=== PATIENT | male | born 1955 | race Caucasian/White ===

== ENCOUNTER → 2016-10-29 | Outpatient (CLI) | payer MEDICARE, BC ==
[~2016-10-29] MED LIST: AMLO10TA2 PO; CEPH-583 PO; DIPH25CA84 PO; DOCU-132 PO; DOCU50LI12 RECTALLY; ERLO150T PO; FENT1PAT68 TOP; INSU100V SQ; INSU100V12 SQ; LISI40TA4 PO; MAGN400O4 PO; MAGN400T6 PO; METF10002 PO; METH1TAB40 PO; METH750T3 PO; METO50TA9 PO; MORP20SY BUC; ONDA-56 PO; OXYC15TA50 PO; OXYC1TAB13 PO; POLY17PO6 PO; PROC-14 PO; RANI150T7 PO; SUCR1TAB PO; TAMS0.4C47 PO; ZOLP10TA6 PO
--- NOTE | 2016-10-29 17:55 | DI ---
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 Coronal and sagittal two-dimensional reformats. Automated Exposure Control and Iterative Reconstruction dose reducing techniques were utilized. Findings: The included portions of the lung bases demonstrate some linear atelectasis or scarring. There is a small granuloma in the anterolateral left lung base. There is an indeterminate nodule in the right middle lobe that measures approximate 5.3 mm, unchanged. There is a large infiltrative mass involving the majority of the anterior right lobe of the liver with moderate ascites and probable carcinomatosis of the omentum. There is no clear bowel distention. The spleen is unremarkable in contour. Adrenal glands are noted. The kidneys are unremarkable. The pancreas is not well seen. The abdominal aorta is nonaneurysmal. There is extensive streak artifact from metallic pedicle screws. Pelvis: There is moderate free fluid in the pelvic cul-de-sac. There is no significant diverticulosis or evidence for diverticulitis. A normal appendix is not identified with certainty. The urinary bladder is not distended. No definite skeletal metastasis. Impression: Large infiltrating mass occupying the majority of the right lobe of the liver with extensive peritoneal carcinomatosis and ascites. No evidence for bowel obstruction or perforation. Stable pulmonary nodules in the included portions of the lung bases. .
== END ==
LOC: IMA 15:51
PROVIDERS: ATTEND Internal Medicine Hematology & Oncology
DX: C22.1 Intrahepatic bile duct carcinoma (principal)

== ENCOUNTER 2016-11-01 15:31 | Inpatient (IN) | payer BC, MEDICARE ==
[2016-11-01] VITALS (17 sets, daily range): BP systolic 162–193; BP diastolic 101–110; PULSE 92–119; RESP 25–40; TEMP 97.9; O2SAT 88–100; Ht 185.4 cm; Wt 64.4 kg
[~2016-11-01] VITALS: Ht 185.4 cm; Wt 64.4 kg
[~2016-11-01 15:31] MED LIST changes: -CEPH-583 PO; -DOCU50LI12 RECTALLY; -ERLO150T PO; -FENT1PAT68 TOP; -MAGN400T6 PO; -METH1TAB40 PO; -MORP20SY BUC; -OXYC15TA50 PO; -POLY17PO6 PO; -PROC-14 PO; -SUCR1TAB PO
--- OUTSIDE RECORDS SUMMARY | 2016-11-01 15:36 | XMS REPORT | Continuity of Care Document ---
Author Author [facility] Organization [facility] Address Unknown Phone Unavailable Care Team Providers Care Framing Mill Operator Name Role Phone Primary Care Physician Unavailable Source Comments Some departments are not documenting in the electronic medical record. If you do not see the information that you expected, contact Release of Information in the Health Information Management department at [phone] for further assistance in locating additional records.[facility] Active Allergies and Adverse Reactions Not on File Current Medications Not on file Active Problems Not on file Social History Tobacco Use Types Packs/Day Years Used Date Never Assessed Plan of Care Health Maintenance Due Date Last Done Comments Hepatitis C Screening 1955 Physical (Comprehensive) 1962 Exam Pertussis Vaccine 1966 Tetanus Vaccine 1972 Colorectal Cancer 2005 Screening Shingles Vaccine 2015 Influenza Vaccine 03/08/2017 Results from Last 3 Months Not on file
--- OUTSIDE RECORDS SUMMARY | 2016-11-01 15:38 | XMS REPORT | Continuity of Care Document ---
Author Author [facility] Organization [facility] Address Unknown Phone Unavailable Support Name Relationship Address Phone LISA DEWITT DO Caregiver [address] [place] [address] Unavailable JOHNNA SMITH DO Caregiver [address] [place] [address] Unavailable MARKUS IBRAHIM Next Of Kin [address] [place] [address] Insurance Providers Guarantor Lesly Ibrahim Address [address] [place] [address] Email [email or web address] Policy Number [id number] Subscriber's Name Lesly Ibrahim Relationship 18 Self Group Number [id number] Chief Complaint and Reason for Visit Chief Complaint Dizzy Reason for Visit Dizziness Problems Active Problems Medical Problem Onset Date Status Liver mass Unknown Past Problems Medical Problem Onset Date Abdominal pain, right upper quadrant Unknown Dizziness Unknown Hypertension Unknown Liver mass, right lobe Unknown Medications Current Home Medications Medication Dose Units Route Directions Days Qty Instructions Start Date Amlodipine Besylate 10 Mg Tablet 10 Mg Oral Daily 03/01/16 Diphenhydramine Hcl (Benadryl) 25 Mg Capsule 25-75 Mg Oral Bedtime as needed for Prn Orders 02/18/16 Docusate Sodium (Dulcolax Stool Softener) 100 Mg Capsule 100 Mg Oral Daily 02/13/16 Insulin Detemir (Levemir) 100 Unit/Ml Inj 25-40 Unit Sub-Q Bedtime 02/10/16 Insulin Lispro (Humalog) 100 Unit/Ml Inj 5 Unit Sub-Q Three Times Daily With Meals 02/10/16 Lisinopril 40 Mg Tablet 40 Mg Oral Daily 08/21/16 Magnesium Hydroxide (Milk Of Magnesia) 400 Mg/5 Ml Oral.susp 30 Ml Oral Daily as needed for Constipation 02/18/16 Metformin Hcl 1,000 Mg Tablet 1,000 Mg Oral Twice Daily With Meals 02/10/16 Methocarbamol 750 Mg Tablet 750 Mg Oral Four Times Daily 02/10/16 Metoprolol Succinate (Toprol Xl) 50 Mg Tab.er.24h 50 Mg Oral Daily 02/10/16 Ondansetron Hcl 8 Mg Tablet 8 Mg Oral Three Times A Day as needed for Nausea 08/21/16 Oxycodone Hcl/Acetaminophen (Percocet 10-325 Mg Tablet) 10-325 Tablet 1 Tab Oral Every 6 Hours as needed for Pain 03/02/16 Ranitidine Hcl 150 Mg Tablet 150 Mg Oral Twice A Day 02/10/16 Tamsulosin Hcl 0.4 Mg Cap.er.24h 0.8 Mg Oral Daily 02/10/16 Zolpidem Tartrate 10 Mg Tablet 10 Mg Oral Bedtime as needed for Insomnia 02/10/16 Social History Social History Problem Response Recorded Date/Time Onset Date Status Hx Substance Use No 08/21/2016 1:20pm Not Applicable Not Applicable Hx Alcohol Use N FORMER ALCOHOLIC 08/21/2016 1:20pm Not Applicable Not Applicable Has the pt used tobacco in the last 12 months No 07/16/2016 6:20pm Not Applicable Not Applicable Query Response Start Date Stop Date Smoking Status Unknown if ever smoked Hospital Discharge Instructions No hospital discharge instructions. Plan of Care Discharge Date 08/21/16 3:23pm Disposition 01 DISCHARGED HOME, SELF-CARE Condition at Discharge Stable Instructions/Education Provided Dizziness (ED) Prescriptions See Medication Section Referrals LISA DEWITT DO Address: [address] [address] Additional Instructions/Education I do want you to make sure that you are drinking plenty of fluids at home. Follow up with the cancer center tomorrow as scheduled. If you have any other issues/concerns then return to ER. I do want you to have a cardiology follow up in the near future. We did discuss your EKG with Dr. Haile. You may follow up with him or cardiology of your choice. Care Plan and Goals Physician Care Plan Problem:Dizziness Goal: Follow up with primary care provider Instructions: Take medications and follow care plan as discussed/written Functional Status No functional status results. Allergies, Adverse Reactions, Alerts No known allergies. Immunizations Query Response on File Recorded Date/Time Hx Influenza Vaccination N DOESN'T DO THIS 07/16/16 6:20pm Hx Pneumococcal Vaccination N DOESN'T DO THIS 07/16/16 6:20pm Hx Influenza Vaccination N DOESN'T DO THIS 07/16/16 6:20pm Influenza Vaccine Hx doesn't do this 08/21/16 1:20pm Vital Signs Acute Vital Signs Vital Response Date/Time Temperature (Fahrenheit) 98.0 deg F (96.8 - 99.1) 08/21/2016 3:35pm Temperature (Calculated Celsius) 36.41278 degrees C (36.0 - 37.3) 08/21/2016 3:35pm Pulse Rate (adult) 92 bpm (60 - 100) 08/21/2016 3:35pm Respiratory Rate 18 breaths/min (10 - 20) 08/21/2016 3:35pm O2 Sat by Pulse Oximetry 98 % (90 - 100) 08/21/2016 3:35pm Oxygen Delivery Method Room Air 07/16/2016 6:29pm Blood Pressure 156/78 mm Hg 08/21/2016 3:35pm Blood Pressure Source Automatic Cuff 07/16/2016 6:29pm Height (Feet) 6 feet 08/21/2016 1:13pm Height (Inches) 1.00 inches 08/21/2016 1:13pm Weight (Kilograms) 69.400 kg 08/21/2016 1:13pm Body Mass Index (BMI) 20.0 08/21/2016 1:13pm Results Laboratory Results Test Name Result Units Flags Reference Collection Date/Time Result Date/ Time Comments Monocytes % (Manual) 2.0 % 0-9.0 07/04/2016 12:33pm 07/04/2016 1:04pm Eosinophils % (Manual) 1.0 % 0-4 07/03/2016 10:47am 07/03/2016 11:23am Basophils % (Manual) 1.0 % 0-2 07/03/2016 10:47am 07/03/2016 11:23am Monocytes # (Manual) 0.1 T/MM3 0-0.8 07/04/2016 12:33pm 07/04/2016 1: 04pm Eosinophils # (Manual) 0.0 T/MM3 0-0.5 07/03/2016 10:47am 07/03/2016 11 :23am Basophils # (Manual) 0.0 T/MM3 0-0.2 07/03/2016 10:47am 07/03/2016 11: 23am Anisocytosis 2+ 06/07/2016 10:37am 06/07/2016 11:18am Neutrophils % (Manual) 69.0 % H 33-66 07/06/2016 12:48pm 07/06/2016 1: 37pm Band Neutrophils % 11.0 % H 0-6 07/06/2016 12:48pm 07/06/2016 1:37pm Lymphocytes % (Manual) 20.0 % L 23-45 07/06/2016 12:48pm 07/06/2016 1: 37pm Band Neutrophils # 0.5 T/MM3 07/06/2016 12:48pm 07/06/2016 1:37pm Absolute Neutrophils (Manual) 3.1 T/MM3 1.8-7.7 07/06/2016 12:48pm 1:37pm Lymphocytes # (Manual) 0.9 T/MM3 L 1-4.8 07/06/2016 12:48pm 07/06/2016 1 :37pm Toxic Granulation 1+ 07/06/2016 12:48pm 07/06/2016 1:37pm Red Cell Morphology Comment ABNORMAL 07/06/2016 12:48pm 07/06/2016 1:37pm Poikilocytosis 1+ 07/06/2016 12:48pm 07/06/2016 1:37pm Tear Drop Cells 1+ 07/06/2016 12:48pm 07/06/2016 1:37pm Schistocytes 1+ 07/06/2016 12:48pm 07/06/2016 1:37pm Total Bilirubin 0.60 MG/DL 0.20-1.30 08/20/2016 9:42am 08/20/2016 9: 57am Alkaline Phosphatase 165 U/L H 38-126 08/20/2016 9:42am 08/20/2016 9: 57am Total Protein 7.7 G/DL 6.3-8.2 08/20/2016 9:42am 08/20/2016 9:57am Albumin 4.5 G/DL 3.5-5.0 08/20/2016 9:42am 08/20/2016 9:57am Globulin 3.2 G/DL 2.4-3.6 08/20/2016 9:42am 08/20/2016 9:57am Albumin/Globulin Ratio 1.4 RATIO 1.1-2.2 08/20/2016 9:42am 08/20/2016 9 :57am Aspartate Amino Transf (AST/SGOT) 23 U/L 17-59 08/20/2016 9:42am 2016 9:57am Alanine Aminotransferase (ALT/SGPT) 33 U/L 21-72 08/20/2016 9:42am 9:57am Lactate Dehydrogenase 410 U/L 313-618 08/20/2016 9:42am 08/20/2016 9: 57am Magnesium Level 1.5 MG/DL L 1.6-2.3 08/20/2016 9:42am 08/20/2016 9:57am Carcinoembryonic Antigen 6.89 UG/L H 0-3.0 08/20/2016 9:42am 08/20/2016 10:27am CA 19-9 Antigen 6740 U/ML H 0-37 08/20/2016 9:42am 08/20/2016 11:12am CA 27.29 49.35 U/ML H 0-37.7 07/12/2016 8:05am 07/12/2016 9:01am White Blood Count 8.9 T/MM3 4.5-11.0 08/21/2016 1:38pm 08/21/2016 1: 42pm Red Blood Count 3.43 M/MM3 L 4.50-5.90 08/21/2016 1:38pm 08/21/2016 1: 42pm Hemoglobin 11.0 GM/DL L 13.5-17.5 08/21/2016 1:38pm 08/21/2016 1:42pm Hematocrit 33.5 % L 41-53 08/21/2016 1:38pm 08/21/2016 1:42pm Mean Corpuscular Volume 97.7 UM3 80-100 08/21/2016 1:38pm 08/21/2016 1: 42pm Mean Corpuscular Hemoglobin 32.1 UUG 26-34 08/21/2016 1:38pm 2016 1:42pm Mean Corpuscular Hemoglobin Concent 32.8 GM/DL 31-37 08/21/2016 1:38pm 08/21/2016 1:42pm RDW Standard Deviation 49.5 FL 36.9-50.2 08/21/2016 1:38pm 08/21/2016 1 :42pm Platelet Count 135 T/MM3 130-400 08/21/2016 1:38pm 08/21/2016 1:42pm Mean Platelet Volume 9.2 UM3 L 9.4-12.4 08/21/2016 1:38pm 08/21/2016 1: 42pm Neutrophils (%) (Auto) 75.4 % H 33-66 08/21/2016 1:38pm 08/21/2016 1: 42pm Lymphocytes (%) (Auto) 12.8 % L 23-45 08/21/2016 1:38pm 08/21/2016 1: 42pm Monocytes (%) (Auto) 9.8 % H 0-9.0 08/21/2016 1:38pm 08/21/2016 1:42pm Eosinophils (%) (Auto) 1.6 % 0-4 08/21/2016 1:38pm 08/21/2016 1:42pm Basophils (%) (Auto) 0.3 % 0-2 08/21/2016 1:38pm 08/21/2016 1:42pm Immature Granulocyte % (Auto) 0.1 % 0.0-0.5 08/21/2016 1:38pm 2016 1:42pm Absolute Neutrophils (auto) 6.7 T/MM3 1.8-7.7 08/21/2016 1:38pm 2016 1:42pm Absolute Lymphocytes (auto) 1.1 T/MM3 1-4.8 08/21/2016 1:38pm 2016 1:42pm Absolute Monocytes (auto) 0.9 T/MM3 H 0-0.8 08/21/2016 1:38pm 2016 1:42pm Absolute Eosinophils (auto) 0.1 T/MM3 0-0.5 08/21/2016 1:38pm 2016 1:42pm Absolute Basophils (auto) 0.0 T/MM3 0-0.2 08/21/2016 1:38pm 08/21/2016 1:42pm Absolute Immature Granulocyte (auto 0.01 T/MM3 0.00-0.03 08/21/2016 1: 38pm 08/21/2016 1:42pm Icterus Index < 2 0-7 08/21/2016 1:38pm 08/21/2016 1:51pm Chemistry Specimen Hemolysis < 15 0-25 08/21/2016 1:38pm 08/21/2016 1 :51pm 0-25: Specimen Exhibited No Hemolysis. Turbidity < 20 0-20 08/21/2016 1:38pm 08/21/2016 1:51pm Sodium Level 140 MEQ/L 134-144 08/21/2016 1:38pm 08/21/2016 1:51pm Potassium Level 4.3 MEQ/L 3.6-5 08/21/2016 1:38pm 08/21/2016 1:51pm Chloride Level 100 MEQ/L 98-107 08/21/2016 1:38pm 08/21/2016 1:51pm Carbon Dioxide Level 21 MEQ/L L 22-30 08/21/2016 1:38pm 08/21/2016 1: 51pm Anion Gap 19 MEQ/L H 5-15 08/21/2016 1:38pm 08/21/2016 1:51pm Blood Urea Nitrogen 28.0 MG/DL H 9-20 08/21/2016 1:38pm 08/21/2016 1: 51pm Creatinine 1.1 MG/DL D 0.8-1.5 08/21/2016 1:38pm 08/21/2016 2:07pm BUN/Creatinine Ratio 26 RATIO 6-26 08/21/2016 1:38pm 08/21/2016 1:51pm Glomerular Filtration Rate Calc 68 08/21/2016 1:38pm 08/21/2016 1: 51pm Glucose Level 317 MG/DL H 75-110 08/21/2016 1:3808/21/2016 1:51pm Calculated Osmolality 287 MOSM/KG H 261-280 08/21/2016 1:382016 1:51pm Calcium Level 9.5 MG/DL 8.4-10.2 08/21/2016 1:38pm 08/21/2016 1:51pm Troponin I < 0.012 ng/ml 0-0.12 08/21/2016 1:3808/21/2016 2:03pm Troponin values with a difference of 55% increase from orginal troponin value represent a true biological DELTA value. (%increase Calc=Orginal Troponin value, divided by subsequent Troponin value, multiplied by 100) Name: LESLY IBRAHIM Unit #: [id number] : 1955 Sex: M Admit Date: Loc / Svc: ED Discharge Date: DIAGNOSTIC IMAGING REPORT Report #: [id number] [facility] IRAJ Valenzuela Indication: ITS.REASON: dizziness PROCEDURE: CT HEAD W/O CONTRAST: Encounter: Initial Comparison: Brain MRI dated May 25, 2016 Technique: Axial CT images through the head were performed without contrast. Iterative Reconstruction dose reducing technique was utilized. FINDINGS: The ventricles are of normal size, shape, and contour for the patient's age. There are scattered areas of low attenuation in the white matter which most likely represent changes from chronic microvascular ischemia. The brainstem, cerebellum, and cerebral hemispheres otherwise have a normal morphology and CT attenuation. There is no evidence of midline displacement. No hemorrhage, signs of acute territorial stroke, mass effect, mass lesions, or edema is evident. The visualized portions of the skull base, midface, and calvarium demonstrate no abnormality. The paranasal sinuses are well aerated and free of significant disease. The tympanic and mastoid cavities appear normal. IMPRESSION: No acute intracranial abnormality or hemorrhage. . Procedures Procedure Status Date Provider(s) Comprehen metabolic panel Completed 03/08/16 Lactate (ld) (ldh) enzyme Completed 03/08/16 Assay of magnesium Completed 03/08/16 Complete cbc w/auto diff wbc Completed 03/08/16 Comprehen metabolic panel Completed 03/08/16 Lactate (ld) (ldh) enzyme Completed 03/08/16 Assay of magnesium Completed 03/08/16 Complete cbc w/auto diff wbc Completed 03/08/16 Comprehen metabolic panel Completed 03/08/16 Lactate (ld) (ldh) enzyme Completed 03/08/16 Assay of magnesium Completed 03/08/16 Complete cbc w/auto diff wbc Completed 03/08/16 Metabolic panel total ca Completed 03/08/16 Assay of magnesium Completed 03/08/16 Complete cbc w/auto diff wbc Completed 03/08/16 Comprehen metabolic panel Completed 03/08/16 Lactate (ld) (ldh) enzyme Completed 03/08/16 Assay of magnesium Completed 03/08/16 Complete cbc w/auto diff wbc Completed 03/08/16 Comprehen metabolic panel Completed 03/08/16 Carcinoembryonic antigen Completed 03/08/16 Lactate (ld) (ldh) enzyme Completed 03/08/16 Assay of magnesium Completed 03/08/16 Complete cbc w/auto diff wbc Completed 03/08/16 Immunoassay tumor ca 19-9 Completed 03/08/16 Comprehen metabolic panel Completed 03/08/16 Lactate (ld) (ldh) enzyme Completed 03/08/16 Assay of magnesium Completed 03/08/16 Complete cbc w/auto diff wbc Completed 03/08/16 Comprehen metabolic panel Completed 03/08/16 Lactate (ld) (ldh) enzyme Completed 03/08/16 Assay of magnesium Completed 03/08/16 Complete cbc w/auto diff wbc Completed 03/08/16 Immunoassay tumor ca 19-9 Completed 03/08/16 Comprehen metabolic panel Completed 03/08/16 Carcinoembryonic antigen Completed 03/08/16 Lactate (ld) (ldh) enzyme Completed 03/08/16 Assay of magnesium Completed 03/08/16 Complete cbc w/auto diff wbc Completed 03/08/16 Immunoassay tumor ca 19-9 Completed 03/08/16 Comprehen metabolic panel Completed 03/08/16 Lactate (ld) (ldh) enzyme Completed 03/08/16 Assay of magnesium Completed 03/08/16 Complete cbc w/auto diff wbc Completed 03/08/16 Comprehen metabolic panel Completed 03/08/16 Lactate (ld) (ldh) enzyme Completed 03/08/16 Assay of magnesium Completed 03/08/16 Complete cbc w/auto diff wbc Completed 03/08/16 Comprehen metabolic panel Completed 03/08/16 Carcinoembryonic antigen Completed 03/08/16 Lactate (ld) (ldh) enzyme Completed 03/08/16 Assay of magnesium Completed 03/08/16 Complete cbc w/auto diff wbc Completed 03/08/16 Immunoassay tumor ca 19-9 Completed 03/08/16 Comprehen metabolic panel Completed 03/08/16 Carcinoembryonic antigen Completed 03/08/16 Lactate (ld) (ldh) enzyme Completed 03/08/16 Assay of magnesium Completed 03/08/16 Complete cbc w/auto diff wbc Completed 03/08/16 Immunoassay tumor ca 19-9 Completed 03/08/16 Comprehen metabolic panel Completed 03/08/16 Lactate (ld) (ldh) enzyme Completed 03/08/16 Assay of magnesium Completed 03/08/16 Complete cbc w/auto diff wbc Completed 03/08/16 Comprehen metabolic panel Completed 03/08/16 Lactate (ld) (ldh) enzyme Completed 03/08/16 Assay of magnesium Completed 03/08/16 Complete cbc w/auto diff wbc Completed 03/08/16 Comprehen metabolic panel Completed 03/08/16 Lactate (ld) (ldh) enzyme Completed 03/08/16 Assay of magnesium Completed 03/08/16 Complete cbc w/auto diff wbc Completed 03/08/16 Comprehen metabolic panel Completed 03/08/16 Carcinoembryonic antigen Completed 03/08/16 Lactate (ld) (ldh) enzyme Completed 03/08/16 Assay of magnesium Completed 03/08/16 Complete cbc w/auto diff wbc Completed 03/08/16 Immunoassay tumor ca 19-9 Completed 03/08/16 Comprehen metabolic panel Completed 03/08/16 Lactate (ld) (ldh) enzyme Completed 03/08/16 Assay of magnesium Completed 03/08/16 Complete cbc w/auto diff wbc Completed 03/08/16 Comprehen metabolic panel Completed 03/08/16 Lactate (ld) (ldh) enzyme Completed 03/08/16 Assay of magnesium Completed 03/08/16 Complete cbc w/auto diff wbc Completed 03/08/16 Comprehen metabolic panel Completed 03/08/16 Lactate (ld) (ldh) enzyme Completed 03/08/16 Assay of magnesium Completed 03/08/16 Complete cbc w/auto diff wbc Completed 03/08/16 Comprehen metabolic panel Completed 03/08/16 Lactate (ld) (ldh) enzyme Completed 03/08/16 Assay of magnesium Completed 03/08/16 Complete cbc w/auto diff wbc Completed 03/08/16 Comprehen metabolic panel Completed 03/08/16 Lactate (ld) (ldh) enzyme Completed 03/08/16 Assay of magnesium Completed 03/08/16 Complete cbc w/auto diff wbc Completed 03/08/16 Mri brain stem w/o & w/dye Completed 05/25/16 GADAVIST 10ML SDV - Contrast,Gadavist 10ml Completed 05/25/16 Mri abdomen w/o & w/dye Completed 06/12/16 GADOXETATE DISODIUM INJ 10 ml Completed 06/12/16 144876"INFUSION, NORMAL SALINE SOLUTION , 250 CC" Completed 06/12/16 Routine venipuncture Completed 06/04/16 Comprehen metabolic panel Completed 06/04/16 Lactate (ld) (ldh) enzyme Completed 06/04/16 Assay of magnesium Completed 06/04/16 Complete cbc w/auto diff wbc Completed 06/04/16 Routine venipuncture Completed 06/04/16 Comprehen metabolic panel Completed 06/04/16 Carcinoembryonic antigen Completed 06/04/16 Lactate (ld) (ldh) enzyme Completed 06/04/16 Assay of magnesium Completed 06/04/16 Complete cbc w/auto diff wbc Completed 06/04/16 Immunoassay tumor ca 19-9 Completed 06/04/16 Routine venipuncture Completed 06/04/16 Comprehen metabolic panel Completed 06/04/16 Lactate (ld) (ldh) enzyme Completed 06/04/16 Assay of magnesium Completed 06/04/16 Complete cbc w/auto diff wbc Completed 06/04/16 Routine venipuncture Completed 06/04/16 Comprehen metabolic panel Completed 06/04/16 Lactate (ld) (ldh) enzyme Completed 06/04/16 Assay of magnesium Completed 06/04/16 Complete cbc w/auto diff wbc Completed 06/04/16 Routine venipuncture Completed 06/04/16 Comprehen metabolic panel Completed 06/04/16 Lactate (ld) (ldh) enzyme Completed 06/04/16 Assay of magnesium Completed 06/04/16 Complete cbc w/auto diff wbc Completed 06/04/16 Routine venipuncture Completed 06/04/16 Comprehen metabolic panel Completed 06/04/16 Lactate (ld) (ldh) enzyme Completed 06/04/16 Assay of magnesium Completed 06/04/16 Complete cbc w/auto diff wbc Completed 06/04/16 Complete cbc w/auto diff wbc Completed 06/04/16 Routine venipuncture Completed 06/07/16 Comprehen metabolic panel Completed 06/07/16 Lactate (ld) (ldh) enzyme Completed 06/07/16 Assay of magnesium Completed 06/07/16 Complete cbc w/auto diff wbc Completed 06/07/16 Ct thorax w/dye Completed 06/18/16 Ct abd & pelv w/contrast Completed 12/12/16 129026"INJECTION, HEPARIN SODIUM, (HEPARIN LOCK FLUSH), PER Completed 003"INFUSION, NORMAL SALINE SOLUTION , 250 CC" Completed 06/18/16823844"LOW OSMOLAR CONTRAST MATERIAL, 300-399 MG/ML IODINE C Completed Ther/proph/diag inj sc/im Completed 06/29/16 TBO-FILGRASTIM 300 MCG INJECTION Completed 06/29/16 Draw blood off venous device Completed 06/29/16 DILCIA PALACIOS Ther/proph/diag iv inf init Completed 06/29/16 Ther/proph/diag iv inf addon Completed 06/29/16777638"INJECTION, HEPARIN SODIUM, (HEPARIN LOCK FLUSH), PER Completed 003"INJECTION, MAGNESIUM SULFATE, PER 500 MG" Completed 06/29/16319983"INJECTION, MAGNESIUM SULFATE, PER 500 MG" Completed 06/29/16 1776120% DEXTROSE/WATER (500 ML=1 UNIT) Completed 06/29/16 3395985% DEXTROSE/WATER (500 ML=1 UNIT) Completed 06/29/16 Routine venipuncture Completed 06/29/16 Comprehen metabolic panel Completed 06/29/16 Lactate (ld) (ldh) enzyme Completed 06/29/16 Assay of magnesium Completed 06/29/16 Complete cbc w/auto diff wbc Completed 06/29/16 Office/outpatient visit est Completed 06/29/16 Ther/proph/diag inj sc/im Completed 06/29/16 TBO-FILGRASTIM 300 MCG INJECTION Completed 06/29/16 Blood transfusion service Completed 07/06/16 DILCIA PALACIOS Rbc antibody screen Completed 07/06/16 Blood typing serologic abo Completed 07/06/16 Blood typing serologic rh(d) Completed 07/06/16 Compatibility test spin Completed 07/06/16 Compatibility test antiglob Completed 07/06/16044067"RED BLOOD CELLS, LEUKOCYTES REDUCED, IRRADIATED, EACH Completed 003"RED BLOOD CELLS, LEUKOCYTES REDUCED, IRRADIATED, EACH Completed 003"INJECTION, HEPARIN SODIUM, (HEPARIN LOCK FLUSH), PER Completed 003"PLATELETS, LEUKOCYTES REDUCED, CMV-NEGATIVE, APHERESI Completed Ther/proph/diag iv inf init Completed 07/16/16 Ther/proph/diag iv inf addon Completed 07/16/16 358641"INJECTION, HEPARIN SODIUM, (HEPARIN LOCK FLUSH), PER Completed 730266"INJECTION, MAGNESIUM SULFATE, PER 500 MG" Completed 07/16/16 194884"INFUSION, NORMAL SALINE SOLUTION , 1000 CC" Completed 07/16/16 Encounters Encounter Location Arrival/Admit Date Discharge/Depart Date Attending Provider Departed Emergency Room [facility] 08/21/16 1:11pm 08/21/16 3: 23pm JOHNNA SMITH DO Registered [facility] 08/20/16 9:38am DILCIA PALACIOS Departed [facility] 07/16/16 6:03pm 07/16/16 11:10pm PAIGE FRANCE APRN Discharged [facility] 07/06/16 2:27pm 07/07/16 11:34pm DILCIA PALACIOS Discharged [facility] 06/29/16 5:47pm 07/07/16 11:33pm DILCIA PALACIOS Registered [facility] 06/22/16 3:05pm DILCIA PALACIOS Registered [facility] 06/18/16 11:11am DILCIA PALACIOS Registered [facility] 06/12/16 10:10am DILCIA PALACIOS Registered [facility] 06/07/16 10:19am DILCIA PALACIOS Discharged [facility] 06/04/16 9:10am 07/07/16 11:50pm DILCIA PALACIOS Registered [facility] 05/25/16 8:46am DILCIA PALACIOS Discharged [facility] 03/08/16 8:31am 07/07/16 11:16pm PAIGE FRANCE APRN Recent Diagnosis
--- NOTE | 2016-11-01 15:59 | NUR ---
PROVIDER DR. CHONG AT BEDSIDE FOR EXAM.
--- NOTE | 2016-11-01 16:11 | ERPDOC ---
Departure Disposition Decision Date: Nov 01, 2016 Disposition Decision Time: 18:10 Disposition: 01 DISCHARGED HOME, SELF-CARE Impression Impression Impression: Primary Impression: Sepsis Additional Impression: Metastatic carcinoma Severity: Severe Condition: Stable Seen By: Physician only Referrals: LISA DEWITT DO (Family) Problems/Meds/Labs Reviewed?: Yes Medications reviewed and manag: Yes Follow up care ordered?: Yes Mental Status: Alert HPI - Respiratory General General Chief Complaint: Dyspnea/Respdistress Stated Complaint: FEVER,CHILLS,SHORTNESS OF BREATH Time Seen by Provider: 16:07 HPI - Respiratory General Initial Comments 61-year-old gentleman with dyspnea. He has had weakness, worsening dyspnea, elevated temp over the last several days. Does have a history of cancer originally starting in gallbladder, then metastasizing throughout his abdomen. abdominal pain is significant with coughing, sneezing, laughing or being touched. He has not slept very well the last several days. He does have a history of constipation from both chemotherapy medication and pain medication. Constipation can be severe and can increase his pain as well. Even has a hard time breathing sometimes because of it. He did have a CT was abdomen done [address] العلي. However shortness of breath and abdominal pain and continued. Allergies: Coded Allergies: No Known Allergies (Unverified , 08/21/16) Past History Past Medical History Metabolic: cancer, diabetes, hypertension GI: GERD Surgical History General: back Cardiac: cardiac cath, cardiac stent Vaccines Hx Influenza Vaccination: No (DOESN'T DO THIS) Hx Pneumococcal Vaccination: No (DOESN'T DO THIS) Social History Does patient use chewing tobac: No Second Hand Exposure: No Substance Use Type: does not use Alcohol Intake: former alcohol drinker Record Review Pertinent history updated: Yes Review of Systems Pulmonary Respiratory: see HPI GI Upper Abdomen: see HPI All other Systems All Other Systems: Reviewed and Negative Physical Exam General General Nourishment: adult, thin, cachectic Distress Description Dyspnea Vitals and Pain First Documented Vital Signs Date Time Temp Pulse Resp B/P Pulse Ox O2 Delivery O2 Flow Rate FiO2 11/01/16 15:35 98.0 123 36 179/109 100 Room Air Weight: Kilograms: Height (feet): 6 Height (inches): 1.00 Triage Pain Scale: Normal Exams: Head: Normocephalic w/o trauma Eyes: Pupils are PERRLA w/ EOMI CV: Regular rate and rhythm, without murmur or gallop, Pulses 2+ all extremities, capillary refill, <2 seconds all ext., no pedal edema noted Neurologic: Patient is alert, and oriented, cranial nerves, motor/sensory/ cerebellar, exams w/o gross deficits, to observation Psychiatric: Patient exhibits, appropriate attention, emotion and affect Respiratory (brief) Comments Crackles bilateral with poor air movement. Abdomen (brief) Comments Distended abdomen, tender to palpation, diminished bowel sounds. Differential Diagnoses Differential Diagnoses Considering: Other (pneumonia, constipation, pulmonary embolus, metastatic disease, pulmonary edema) Progress Results/Orders Orders Procedure Category Date Status Time Blood Culture YAMILA 11/01/16 In Process 16:18 Cbc W/Auto LAB 11/01/16 Complete Diff-Reflex Manual 16:18 Cmp - Comprehensive LAB 11/01/16 Complete Metabolic 16:18 Procalcitonin LAB 11/01/16 Complete 16:18 Iv Lock (Ed Only) EDM 11/01/16 Transmitted 16:18 Oxygen Administration EDM 11/01/16 Transmitted 16:18 Cefepime (Maxipime) PHA 11/01/16 In Process 16:30 Levofloxacin 750 Mg PHA 11/01/16 In Process Ivpb (Levaquin 750 M 16:30 Vancomycin (Vancocin) PHA 11/01/16 In Process 16:30 Pharmacy Consult CONS 11/01/16 Transmitted 16:18 Hydromorphone PHA 11/01/16 Complete (Dilaudid) 16:30 Ondansetron Inj PHA 11/01/16 Complete (Zofran) 16:30 Lactate - Lactic Acid LAB 11/01/16 Complete 16:[address] 11/01/16 Logged Normal Saline (Normal PHA 11/01/16 Complete Saline Iv) 16:45 Iohexol (Omnipaque) PHA 11/01/16 Complete 16:46 Normal Saline (Ns) PHA 11/01/16 Complete 16:46 Saline Flush (Iv PHA 11/01/16 Complete Flush) 16:46 Vancomycin (Vancocin) PHA 11/02/16 In Process 08:00 Blood Gas, Arterial - LAB 11/01/16 Logged ABG Lab Results Laboratory Tests Test 11/01/16 16:07 11/01/16 16:38 White Blood Count 15.3T/MM3 Red Blood Count 3.88M/MM3 Hemoglobin 11.9GM/DL Hematocrit 37.0% Mean Corpuscular Volume 95.4UM3 Mean Corpuscular Hemoglobin 30.7UUG Mean Corpuscular Hemoglobin Concent 32.2GM/DL RDW Standard Deviation 48.0FL Platelet Count 279T/MM3 Mean Platelet Volume 10.5UM3 Immature Granulocyte % (Auto) % Neutrophils (%) (Auto) % Lymphocytes (%) (Auto) % Monocytes (%) (Auto) % Eosinophils (%) (Auto) % Basophils (%) (Auto) % Absolute Immature Granulocyte (auto T/MM3 Absolute Neutrophils (auto) T/MM3 Absolute Lymphocytes (auto) T/MM3 Absolute Monocytes (auto) T/MM3 Absolute Eosinophils (auto) T/MM3 Absolute Basophils (auto) T/MM3 Neutrophils % (Manual) 95.0% Band Neutrophils % 1.0% Lymphocytes % (Manual) 3.0% Monocytes % (Manual) 1.0% Absolute Neutrophils (Manual) 14.5T/MM3 Band Neutrophils # 0.2T/MM3 Lymphocytes # (Manual) 0.5T/MM3 Monocytes # (Manual) 0.2T/MM3 Poikilocytosis 1+ [place] Cells 1+ Red Cell Morphology Comment Abnormal Turbidity < 20 Sodium Level 142MEQ/L Potassium Level 4.5MEQ/L Chloride Level 101MEQ/L Carbon Dioxide Level 6MEQ/L Anion Gap 35MEQ/L Blood Urea Nitrogen 16.0MG/DL Creatinine 0.8MG/DL Glomerular Filtration Rate Calc 98 BUN/Creatinine Ratio 20RATIO Glucose Level 590MG/DL Calculated Osmolality 301MOSM/KG Calcium Level 10.2MG/DL Total Bilirubin 1.20MG/DL Icterus Index < 2 Aspartate Amino Transf (AST/SGOT) 25U/L Alanine Aminotransferase (ALT/SGPT) 51U/L Alkaline Phosphatase 1057U/L Total Protein 6.8G/DL Albumin 3.9G/DL Globulin 2.9G/DL Albumin/Globulin Ratio 1.3RATIO Procalcitonin 0.32NG/ML Chemistry Specimen Hemolysis 20 Plasma Lactate 3.1MMOL/L Medications Current ED Medications Cefepime HCl 1 g/ Sodium Chloride 100 ml @ 200 mls/hr Q6H IV Last administered on 11/01/16t 16:55; Start 11/01/16 at 16:30 Levofloxacin 750 mg/Dextrose/Water 150 ml @ 100 mls/hr Q24H IV ; Start at 16:30 Vancomycin HCl/ Sodium Chloride (Vancocin/NS) 500 ml @ 250 mls/hr O ONCE IV ; Start 11/01/16 at 16:30; Stop 11/01/16 at 18:29 Hydromorphone HCl (Dilaudid) DOSE = 1mg = 0.5ml O ONCE IV Last administered on 11/01/16 16:53; Start 11/01/16 at 16:30; Stop 11/01/16 at 16:31; Status DC Ondansetron HCl 4 mg 4 mg O ONCE IV Last administered on 11/01/16 16:50; Start 11/01/16 at 16:30; Stop 11/01/16 at 16:31; Status DC Sodium Chloride (Normal Saline IV) 1,000 ml @ 1,000 mls/hr Q1H ONCE IV Last administered on 11/01/16 16:50; Start 11/01/16 at 16:45; Stop 11/01/16 at 17:44 ; Status DC Iohexol 1 bottle 1 bottle STK-MED ONCE .ROUTE ; Start 11/01/16 at 16:46; Stop at 16:47; Status DC Sodium Chloride (NS) 100 ml @ As Directed STK-MED ONCE .ROUTE ; Start 11/01/16 at 16:46; Stop 11/01/16 at 16:47; Status DC Sodium Chloride 10 ml 10 ml STK-MED ONCE .ROUTE ; Start 11/01/16 at 16:46; Stop 11/01/16 at 16:47; Status DC Vancomycin HCl/ Sodium Chloride (Vancocin/NS) 500 ml @ 250 mls/hr Q12H IV ; Start 11/02/16 at 08:00 Progress Progress Patient fits sepsis protocol with elevated lactate, elevated white count, tachycardia and tachypnea. His blood pressure is maintained somewhat elevated. He received 1 L of normal saline and a second liter has been started. Cefepime, Levaquin and vancomycin are ordered. Per sepsis protocol of unknown origin. CT chest showed no PE, but did show evidence of metastatic disease which may be new. Patient is aware of this. Dr. Webster is willing to admit him to the hospital for IV fluid and antibiotic treatment of the sepsis. JULIET CHONG MD Nov 01, 2016 16:11
--- OUTSIDE RECORDS SUMMARY | 2016-11-01 16:14 | XMS REPORT | Continuity of Care Document ---
Author Author [facility] Organization [facility] Address Unknown Phone Unavailable Care Team Providers Care Hr Director Name Role Phone Primary Care Physician Unavailable Source Comments Some departments are not documenting in the electronic medical record. If you do not see the information that you expected, contact Release of Information in the Health Information Management department at [phone] for further assistance in locating additional records.[facility] Active Allergies and Adverse Reactions Not [...]
[2016-11-01] MEDS ORDERED: PROC-14 PO (16:19)
[2016-11-01] MEDS ORDERED: CEPH-583 PO (16:19)
[2016-11-01] MEDS ORDERED: MAGN400T6 PO (16:21)
[2016-11-01] MEDS ORDERED: METH1TAB40 PO (16:28)
[2016-11-01] MEDS ORDERED: SUCR1TAB PO (16:28)
[2016-11-01] MEDS ORDERED: OXYC15TA50 PO (16:28)
[2016-11-01] MEDS ORDERED: DOCU50LI12 RECTALLY (16:28)
[2016-11-01] MEDS ORDERED: POLY17PO6 PO (16:28)
[2016-11-01] MEDS ORDERED: VANCOMYCIN 1.75 G in NORMAL SALINE 500 ML IV ONE (16:30)
[2016-11-01] MEDS ORDERED: METO50TA9 PO (16:30)
[2016-11-01] MEDS ORDERED: HYDROMORPHONE 2mg/ml INJECTION IV ONE (16:30)
[2016-11-01] MEDS ORDERED: ONDANSETRON 4mg/2ml INJECTION IV ONE (16:30)
[2016-11-01] MEDS ORDERED: ERLO150T PO (16:30)
[2016-11-01 16:32] LABS: HGB - HEMOGLOBIN 11.9 GM/DL (13.5-17.5); MEAN CORPUSCULAR HGB 30.7 UUG (26-34); MEAN CORPUSCULAR HGB CONC(MCHC 32.2 GM/DL (31-37); MEAN CORPUSCULAR VOLUME 95.4 UM3 (80-100); MEAN PLATELET VOLUME 10.5 UM3 (9.4-12.4); RED BLOOD COUNT 3.88 M/MM3 (4.50-5.90); WBC - WHITE BLOOD COUNT 15.3 T/MM3 (4.5-11.0)
--- NOTE | 2016-11-01 16:32 | NUR ---
LAB AT BEDSIDE FOR BLOOD CULTURE.
[2016-11-01 16:39] LABS: ALBUMIN 3.9 G/DL (3.5-5.0); ALBUMIN/GLOBULIN RATIO 1.3 RATIO (1.1-2.2); ALKALINE PHOSPHATASE 1057 U/L (38-126); ALT (SGPT) 51 U/L (21-72); ANION GAP 35 MEQ/L (5-15); AST (SGOT) 25 U/L (17-59); BUN/CREATININE RATIO 20 RATIO (6-26); CALCIUM 10.2 MG/DL (8.4-10.2); CHLORIDE 101 MEQ/L (98-107); CREATININE 0.8 MG/DL (0.8-1.5); GLOMERULAR FILTRATION RATE 98; GLUCOSE 590 MG/DL (75-110); POTASSIUM 4.5 MEQ/L (3.6-5); SODIUM 142 MEQ/L (134-144); TOTAL PROTEIN 6.8 G/DL (6.3-8.2)
[2016-11-01] MEDS ORDERED: NORMAL SALINE 1,000 ML IV ONE ×2 (16:45→18:15)
[2016-11-01] MEDS ORDERED: NORMAL SALINE 100 ML ONE (16:46)
[2016-11-01] MEDS ORDERED: IOHEXOL 350 MG/ML 75ml INJECTION ONE (16:46)
[2016-11-01] MEDS ORDERED: SALINE FLUSH 10ml SYRINGE ONE (16:46)
[2016-11-01 16:52] LABS: BAND NEUTROPHILS # 0.2 T/MM3; LYMPHOCYTES # (MANUAL) 0.5 T/MM3 (1-4.8); MONOCYTES # (MANUAL) 0.2 T/MM3 (0-0.8); NEUTROPHILS #(MANUAL)-ABSOLUTE 14.5 T/MM3 (1.8-7.7); TOTAL CELLS COUNTED 100 %
[2016-11-01 16:53] LABS: BURR CELLS 1+; POIKILOCYTOSIS 1+
[2016-11-01 16:55] LABS: CO2 - CARBON DIOXIDE 6 MEQ/L (22-30)
[2016-11-01] MEDS: CEFEPIME 1 G in NORMAL SALINE 100 ML IV SCH ×2 (16:55→23:20)
--- NOTE | 2016-11-01 16:57 | NUR ---
CT PT TO CT BY CART AT THIS TIME.
--- NOTE | 2016-11-01 17:27 | NUR ---
RETURN PT RETURNED FROM CT BY CART AT THIS TIME. CEFEPIME ABX NOTED TO BE ON HOLD FROM CT, RESUMED BY THIS RN AT THIS TIME.
--- NOTE | 2016-11-01 17:35 | NUR ---
STATUS PT RESTING IN CART. PT STILL TACHYPNEIC; HOWEVER, RESPIRATIONS HAVE SLOWED AND PT REPORTS IMPROVEMENT IN WORK OF BREATHING. REPORTS DECREASE IN PAIN TO 5/10 AFTER MEDICATION ADM. SPOUSE BACK AT BEDSIDE. CALL LIGHT WITHIN REACH, WILL CONTINUE TO MONITOR.
--- NOTE | 2016-11-01 18:04 | NUR ---
VANCOMYCIN CONSULT: Dx: Pneumonia Current Renal Fx: SCr = 0.8mg/dl. Will give Vancomycin 1,500mg IV q12hrs after 1,750mg loading dose. Will continue to monitor and adjust regimen to maintain therapeutic levels. Thank you.
--- NOTE | 2016-11-01 18:05 | NUR ---
PROVIDER DR. CHONG AT BEDSIDE TO SPEAK WITH PT.
--- NOTE | 2016-11-01 18:08 | NUR ---
RT AT BEDSIDE FOR ABG.
--- NOTE | 2016-11-01 18:25 | NUR ---
STATUS PT APPEARS TO BE RESTING COMFORTABLY IN CART. REPORTS PAIN 4-5/10. PT STILL TACHYPNEIC, BUT RATE SLOWER WITH REST. DENIES NEEDS AT THIS TIME. CALL LIGHT WITHIN REACH, WILL CONTINUE TO MONITOR.
[2016-11-01] MEDS: LEVOFLOXACIN 750 mg IVPB 750 MG in D5W 150 ML IV SCH (18:30)
--- OUTSIDE RECORDS SUMMARY | 2016-11-01 19:02 | XMS REPORT | Continuity of Care Document ---
Author Author [facility] Organization [facility] Address Unknown Phone Unavailable Care Team Providers Care Front End Architect Name Role Phone Primary Care Physician Unavailable Source Comments Some departments are not documenting in the electronic medical record. If you do not see the information that you expected, contact Release of Information in the Health Information Management department at [phone] for further assistance in locating additional records.[facility] Active Allergies and Adverse Reactions Not on [...]
--- NOTE | 2016-11-01 19:10 | NUR ---
REPORT CALLED TO ANY BURGESS ON CCU. QUESTIONS ANSWERED AT THIS TIME.
--- NOTE | 2016-11-01 19:30 | NUR ---
ADMIT PT TAKEN TO CCU, BED 2 BY CART PER THIS RN ON MONITOR. REPORTS PAIN CURRENTLY 4-5. PT SLIDES TO CCU BED WITH INCREASED SHORTNESS OF BREATH AND RESPIRATORY RATE.
--- NOTE | 2016-11-01 19:30 | NUR ---
Admit Pt admitted to CCU Bed #2 from ED. Pt very fatigued and SOA on RA. Pt moves himself between beds. Pt alert & oriented x 3. Pt HR is 110's. Pt respirations are 30-40s/min. Pt educated on c all light, bed and that dia catheter would be placed. Pt verbalizes understanding.
--- NOTE | 2016-11-01 20:00 | NUR ---
Catheter Rivera catheter placed per order from Dr Webster. Coude 16 Fr inserted. (Attempted regular catheter, but could not advance, order rec'd from Dr Webster to attempt Coude). Coude inserted with minimal/no difficulty. clear, light yellow urine output noted.
[2016-11-01] MEDS ORDERED: INSULIN ASPART 100 UNIT/ML SQ ONE (20:30)
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
[2016-11-01 20:57] LABS: BLOOD, URINE TRACE-INTACT (NEGATIVE); COLOR,URINE YELLOW (YELLOW); LEUKOCYTE ESTERASE ,URINE NEGATIVE (NEGATIVE); NITRITE,URINE NEGATIVE (NEGATIVE); UROBILINOGEN,URINE 0.2 EU/DL (NORMAL)
[2016-11-01] MEDS ORDERED: METHENAMINE HIPPURATE 1 GM TABLET PO PRN (21:00)
[2016-11-01] MEDS ORDERED: ALBUTEROL INH.SOLN. 2.5mg/3ml (0.083%) Neb. AEROSOL PRN (21:00)
[2016-11-01] MEDS ORDERED: ACETAMINOPHEN 325 MG TABLET PO PRN (21:00)
[2016-11-01 21:04] LABS: ALBUMIN 3.6 G/DL (3.5-5.0); BUN/CREATININE RATIO 21 RATIO (6-26); CALCIUM 9.4 MG/DL (8.4-10.2); CHLORIDE 108 MEQ/L (98-107); CO2 - CARBON DIOXIDE < 5 MEQ/L (22-30); CREATININE 0.8 MG/DL (0.8-1.5); GLOMERULAR FILTRATION RATE 98; GLUCOSE 537 MG/DL (75-110); MAGNESIUM 1.2 MG/DL (1.6-2.3); PHOSPHORUS 4.3 MG/DL (2.5-4.5); POTASSIUM 4.9 MEQ/L (3.6-5); SODIUM 143 MEQ/L (134-144)
[2016-11-01] MEDS ORDERED: NORMAL SALINE 1,000 ML IV SCH (21:45)
[2016-11-01] MEDS: INSULIN REGULAR 100 UNIT in NORMAL SALINE 100 ML IV SCH (21:45)
[2016-11-01] MEDS: TAMSULOSIN 0.4 MG CAPSULE PO SCH (22:00)
[2016-11-01] MEDS ORDERED: INSULIN DETEMIR 100 UNIT/ML SQ SCH (22:00)
[2016-11-01] MEDS: MAGNESIUM SULFATE 1 G in D5W 100 ML IV SCH ×2 (22:01→23:11)
[2016-11-01] MEDS: SENNA + DOCUSATE TAB PO SCH (23:09)
[2016-11-02] VITALS (24 sets, daily range): BP systolic 146–188; BP diastolic 89–114; PULSE 91–121; RESP 13–110; TEMP 97.3–98.6; O2SAT 100
[2016-11-02 00:09] LABS: ANION GAP 21 MEQ/L (5-15); BUN/CREATININE RATIO 26 RATIO (6-26); CALCIUM 9.4 MG/DL (8.4-10.2); CHLORIDE 111 MEQ/L (98-107); CO2 - CARBON DIOXIDE 11 MEQ/L (22-30); CREATININE 0.7 MG/DL (0.8-1.5); GLOMERULAR FILTRATION RATE 115; GLUCOSE 309 MG/DL (75-110); POTASSIUM 3.7 MEQ/L (3.6-5); SODIUM 143 MEQ/L (134-144)
[2016-11-02] MEDS: D5-1/2 NS KCL 20 MEQ 1,000 ML IV SCH ×2 (03:24→11:12)
[2016-11-02] MEDS: OXYCODONE I.R. 15 MG TABLET PO PRN ×4 (03:25→19:35)
--- NOTE | 2016-11-02 03:25 | NUR ---
Pain Pt c/o 5/10 pain in abd/back. PRN Roxicodone offered and pt accepts.
[2016-11-02] MEDS: HYDROMORPHONE 2mg/ml INJECTION IV PRN ×7 (04:29→23:24)
--- NOTE | 2016-11-02 04:29 | NUR ---
Pain Pt c/o 4/10 pain in abd/back after roxicodone admin. PRN Dilaudid offered and pt accepts.
[2016-11-02] MEDS: CEFEPIME 1 G in NORMAL SALINE 100 ML IV SCH ×4 (05:07→23:03)
[2016-11-02 05:25] LABS: HCT - HEMATOCRIT 32.1 % (41-53); HGB - HEMOGLOBIN 10.4 GM/DL (13.5-17.5); MEAN CORPUSCULAR HGB 29.9 UUG (26-34); MEAN CORPUSCULAR HGB CONC(MCHC 32.4 GM/DL (31-37); MEAN CORPUSCULAR VOLUME 92.2 UM3 (80-100); MEAN PLATELET VOLUME 9.6 UM3 (9.4-12.4); RED BLOOD COUNT 3.48 M/MM3 (4.50-5.90); WBC - WHITE BLOOD COUNT 15.7 T/MM3 (4.5-11.0)
[2016-11-02 05:39] LABS: ALBUMIN 3.1 G/DL (3.5-5.0); ANION GAP 14 MEQ/L (5-15); BUN/CREATININE RATIO 33 RATIO (6-26); CALCIUM 9.4 MG/DL (8.4-10.2); CHLORIDE 109 MEQ/L (98-107); CO2 - CARBON DIOXIDE 19 MEQ/L (22-30); CREATININE 0.6 MG/DL (0.8-1.5); GLOMERULAR FILTRATION RATE 137; GLUCOSE 169 MG/DL (75-110); MAGNESIUM 1.5 MG/DL (1.6-2.3); PHOSPHORUS 1.2 MG/DL (2.5-4.5); POTASSIUM 3.4 MEQ/L (3.6-5); SODIUM 142 MEQ/L (134-144)
--- NOTE | 2016-11-02 06:00 | NUR ---
Rest Pt has been resting quietly/sleeping in chair for last 1-1 1/2 hours. Pt up to chair for comfort.
[2016-11-02] MEDS ORDERED: NORMAL SALINE IV ONE (06:15)
[2016-11-02] MEDS ORDERED: MAGNESIUM SULFATE 1 G in D5W 100 ML IV ONE (06:15)
[2016-11-02] MEDS ORDERED: POTASSIUM PHOSPHATE IV ONE (06:15)
[2016-11-02 06:34] LABS: BAND NEUTROPHILS # 0.3 T/MM3; LYMPHOCYTES # (MANUAL) 1.6 T/MM3 (1-4.8); MONOCYTES # (MANUAL) 1.4 T/MM3 (0-0.8); NEUTROPHILS #(MANUAL)-ABSOLUTE 12.4 T/MM3 (1.8-7.7); POIKILOCYTOSIS 1+; TOTAL CELLS COUNTED 100 %
--- NOTE | 2016-11-02 07:00 | NUR ---
Status Pt slept quite well during night. Pt rates pain 3-4/10 in abd and back. PRN's admin for this. Pt denies nausea and states soa is improved. Pt states he feels better as night progressed. Pt weaned from 2 liters of O2 to RA during night. Pt HR has been 90's to 110's during night. Pt resp noted to be 20's most of night. Pt pleasant and cooperative. Mepilex dsg to buttocks as small area of concern/sore noted. Encouraged pt to not lay on back much, but rather be on side. Pt stays on side for only about an hour before stating he can't lay on back due to his pain. Pt also up to chair for a couple of hours during night. Insulin gtt at 6 cc/hr during night. Bed and chair alarm used. Will continue to monitor.
[2016-11-02] MEDS: ONDANSETRON 4mg/2ml INJECTION IV PRN ×3 (07:59→21:20)
[2016-11-02] MEDS: VANCOMYCIN 1,500 MG in NORMAL SALINE 500 ML IV SCH ×2 (08:17→20:20)
--- NOTE | 2016-11-02 08:41 | DI ---
Indication: ITS.REASON: dyspnea PROCEDURE: CTA PULMONARY EMBOLI: Encounter: Initial Comparison: None Technique: Axial CT pulmonary angiographic phase images were performed through the chest after the administration of intravenous contrast. Coronal and Sagittal MIP reconstructed images were created and reviewed. Automated Exposure Control and Iterative Reconstruction dose reducing techniques were utilized. Contrast: Omnipaque 350 53 mL Findings: Pulmonary arteries: Exam is diagnostic to the subsegmental pulmonary arterial level. No filling defects identified to suggest a pulmonary embolus. Other findings: Previously repaired descending thoracic aortic aneurysm. No pneumothorax. Scattered pulmonary metastases are seen on the order of 5 to 7 mm in size. No consolidative pneumonia. No pleural effusion or pneumothorax. The central airways are patent. No axillary or mediastinal adenopathy. Heart size is normal. No pericardial effusion. Moderate hiatal hernia. Upper abdomen shows a large mass occupying the majority of the right lobe and medial left lobe of the liver with small satellite metastatic foci and malignant ascites. Stomach is quite distended with fluid. Old rib fractures. Impression: 1. No pulmonary embolus, focal pneumonia or congestive failure. 2. Scattered small pulmonary metastases. 3. Large liver mass with malignant ascites. There is a preliminary report by [facility]. .
[2016-11-02] MEDS: TAMSULOSIN 0.4 MG CAPSULE PO SCH ×2 (09:10→21:08)
[2016-11-02] MEDS: LACTULOSE 20 GM/30 ML UD PO PRN (09:10)
[2016-11-02] MEDS: METOPROLOL XL 50 MG TABLET PO SCH (09:10)
[2016-11-02] MEDS: SENNA + DOCUSATE TAB PO SCH ×2 (09:10→21:08)
[2016-11-02] MEDS: AMLODIPINE 10 MG TABLET PO SCH (09:10)
--- NOTE | 2016-11-02 09:10 | DI ---
Indication: ITS.REASON: sepsis PROCEDURE: CHEST 1 VIEW: Encounter: Initial Comparison: CT angiogram of the chest from yesterday Findings: Small pulmonary metastases are not apparent radiographically. No consolidative pneumonia, pleural effusion or pneumothorax. Heart size and mediastinal contours are stable. Aortic stent noted along with a right IJ port catheter. Pulmonary vascularity appears normal. Impression: No focal pneumonia. .
[2016-11-02] MEDS: POLYETHYL.GLYCOL 3350 PACKET 17gm PO SCH (09:15)
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
[2016-11-02 10:17] LABS: ANION GAP 11 MEQ/L (5-15); BUN/CREATININE RATIO 36 RATIO (6-26); CALCIUM 8.8 MG/DL (8.4-10.2); CHLORIDE 109 MEQ/L (98-107); CO2 - CARBON DIOXIDE 21 MEQ/L (22-30); CREATININE 0.5 MG/DL (0.8-1.5); GLOMERULAR FILTRATION RATE 169; GLUCOSE 135 MG/DL (75-110); MAGNESIUM 1.7 MG/DL (1.6-2.3); POTASSIUM 3.6 MEQ/L (3.6-5); SODIUM 141 MEQ/L (134-144)
[2016-11-02] MEDS ORDERED: PROCHLORPERAZINE 10 MG TABLET PO PRN (12:00)
[2016-11-02] MEDS: SUCRALFATE 1 G TABLET PO SCH ×3 (12:29→21:08)
[2016-11-02] MEDS: INSULIN REGULAR 100 UNIT in NORMAL SALINE 100 ML IV SCH (14:26)
--- NOTE | 2016-11-02 14:30 | NUR ---
COMFORT DILAUDID 1 MG IVP SLOWLY GIVEN AT THIS TIME FOR C/O ABD AND BACK DISCOMFORT 12/15. FREQUENT POSITION CHANGES THIS SHIFT, LATERAL ROTATION USED AT TIMES. ROXICODONE PO AND ZOFRAN USED ABLE FOR NAUSEA AND DISCOMFORT. MINIMAL PO INTAKE R/T NAUSEA AND LOSS OF APPETITE. LASTER HAND CONSULTED. WOUND TEAM ALSO CONSULTED, HERE THIS AM FOR COCCYX REDNESS AND BREAKDOWN.
--- NOTE | 2016-11-02 14:52 | NUR ---
CM CM IN TO VISIT WITH PT AND . CM EXPLAINED ROLE AND PROVIDED CONTACT INFORMATION WAS PROVIDED. PT WANTS TO GO HOME ON [facility], PT AGREES WITH THIS DECISION BUT HAS QUESTIONS. DR. MCCLAIN ADVISED AND ORDER FOR HOSPICE CONSULT WAS RECEIVED. CALL TO [facility] AT [facility] [phone], THEY WILL VISIT PT TODAY. PT AND FAMILY AWARE TO CONTACT CM SHOULD NEEDS ARISE.
--- NOTE | 2016-11-02 16:04 | NUR ---
Dietary Consult R/T DM/ poor po intake and adult BMI < 18.6 Diet Order: Clear Liquid Intake: bites - 25% Pt here with decreased appetite R/T metastatic gallbladder CA Pt states having poor appetite. Pt states he would like to try the Swift Breeze and the NSA mighty shakes with each meal, but not right now. Pt states his abdomen is distended and tight. FANS notified to send Breeze and NSA mighty shake with each meal. RD available at ext [phone]
--- NOTE | 2016-11-02 16:11 | PNPDOC ---
Subjective Date DATE: 11/02/16 TIME: 16:06 Subjective Mr. Ibrahim was seen with his the bedside this morning. His reports that she's had poor oral intake for the past week with no solid food for 5 days. Consequently he had not taken metformin for 5 days and she did not given him insulin for 3-4 days prior to admission. Patient reported that his breathing is better today but he continues to have nausea and abdominal pain. He continues to describe constipation. Complains of being weak and his reports he's been minimally ambulatory recently. Nursing reports good urine output overnight and no fever. Blood pressures have been elevated throughout the night. Objective Vital Signs Vital signs Vital Signs Date Time Temp Pulse Resp B/P Pulse Ox O2 Delivery O2 Flow Rate FiO2 11/02/16 15:00 91 13 170/107 100 Room Air 11/02/16 12:00 97.8 11/02/16 07:00 1.00 EXAM General-drowsy, weak voice HEENT-sclera anicteric, conjunctiva clear, she'll structures symmetric, oropharynx clear Lungs-respirations are nonlabored, no longer tachypnea, diminished breath sounds throughout but clear Cardiac-regular rhythm, S1-S2 Abd-distended, tender, mass palpable anteriorly, bowel sounds diminished Ext-without edema Skin-no visualized rash Height (Feet): 6 Height (Inches): 1.00 Weight (Kilograms): 63.100 Laboratory Laboratory Laboratory Tests 11/01/16 16:07 11/01/16 20:38 11/01/16 23:51 11/02/16 04:13 11/02/16 10:00 Laboratory Tests 11/01/16 16:07 11/02/16 04:13 Segs 79, bands 2, lymphocytes 10, monocytes 9 Phosphorus 2.2, magnesium 1.7 Microbiology Microbiology Microbiology Date/Time Source Procedure Growth Status 11/01/16 16:38 Peripheral/Iv Start Blood Culture - Preliminary CULTURE INITIATED - RESULTS PENDING Resulted 11/01/16 16:07 Peripheral/Iv Start Blood Culture - Preliminary CULTURE INITIATED - RESULTS PENDING Resulted Radiology X-ray reviewed by myself demonstrating no infiltrate or volume overloaded. Small pulmonary metastases seen on CT are not evident on chest x-ray. Sepsis Diagnostic Criteria Sepsis Confirmed/Suspected Infection: Yes SIRS Criteria: Pulse >= 90 beats/min, WBC >=12,000 or <=4,000, RR > or = to 20 (May be secondary due to metabolic acidosis) Severe Sepsis SpO2 <90% or ventilated, Lactate >=2.0 mg/dL Assessment & Plan Assessment Severe sepsis DKA with severe metabolic acidosis Lactic acidosis-sepsis versus liver failure Cholangiocarcinoma, extensive hepatic metastases Ascites Uncontrolled diabetes mellitus, possible DKA Hypertension GERD Hypomagnesemia Hypophosphatemia Anorexia Additional data accumulated overnight clearly confirms diagnosis of DKA, 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 Blood sugars have stabilized with insulin drip and acidosis is cleared with insulin/D5 infusion. Poor oral intake but patient is tolerating sips of clear liquids. Plan conversion to subcutaneous insulin at this time, convert to half-normal with K-Phos, continue to monitor electrolytes as further replacement of potassium, phosphorus, and magnesium are all likely. Blood cultures negative to date, question of sepsis remains uncertain. Triple antibiotics continue pending cultures. Lactic acidosis may simply be result of hepatic failure. Potassium/magnesium/phosphorus are being supplemented IV. Prognosis grim-patient and are meeting with hospice but at present have not decided to sign on. Plan/Intensity of Service Discussed with Dr. Cuenca, case management, nursing multiply; chest x-ray reviewed by myself, laboratory data reviewed. Code Status Full Code Hospital Course Summary Disclaimer The hospital course summary below is not to be considered part of the above Progress Note. HAVEN MCCLAIN MD Nov 02, 2016 16:10
[2016-11-02] MEDS ORDERED: LISINOPRIL 20 MG TABLET PO ONE (16:15)
[2016-11-02 16:21] LABS: ALBUMIN 3.1 G/DL (3.5-5.0); ANION GAP 12 MEQ/L (5-15); BUN/CREATININE RATIO 30 RATIO (6-26); CHLORIDE 109 MEQ/L (98-107); CO2 - CARBON DIOXIDE 22 MEQ/L (22-30); CREATININE 0.5 MG/DL (0.8-1.5); GLOMERULAR FILTRATION RATE 169; GLUCOSE 114 MG/DL (75-110); PHOSPHORUS 2.2 MG/DL (2.5-4.5); POTASSIUM 3.3 MEQ/L (3.6-5); SODIUM 143 MEQ/L (134-144)
[2016-11-02] MEDS ORDERED: D5 IV SCH ×2 (17:00)
[2016-11-02] MEDS ORDERED: POTASSIUM PHOSPHATE IV SCH ×2 (17:00)
[2016-11-02] MEDS ORDERED: 1/2 NS IV SCH ×2 (17:00)
[2016-11-02] MEDS: LEVOFLOXACIN 750 mg IVPB 750 MG in D5W 150 ML IV SCH (17:03)
--- NOTE | 2016-11-02 17:58 | NUR ---
POULTRY VETERINARIAN HERE EARLIER, VISITS WITH PATIENT AND . GIVES BETTER UNDERSTANDING OF HOSPICE CARE. AND PATIENT NOT QUITE READY TO MAKE DECISION FOR HOSPICE CARE. DR PALM AWARE.
--- NOTE | 2016-11-02 17:59 | NUR ---
COMFORT DISCOMFORT MUCH BETTER CONTROLLED SINCE DILAUDID 1 MG GIVEN RATHER THAN 0.5 MG. HAS SLEPT MUCH OF THE AFTERNOON. WAKENS EASILY FOR MEDICATIONS. TAKES SIPS PO FLUIDS.
[2016-11-02] MEDS: POTASSIUM PHOSPHATE IV SCH (18:29)
[2016-11-02] MEDS: 1/2 NS IV SCH (18:29)
--- NOTE | 2016-11-02 19:42 | NUR ---
CODE STATUS CONFIRMED WITH DR JOHNY KUO CODE STATUS. SHE STATES HE EMPHATICALLY STATED YESTERDAY HE WANTS TO BE A FULL CODE. SPOKE WITH AT THIS TIME AND SHE ALSO STATES THAT HE STILL WANTS TO BE A FULL CODE.
[2016-11-02] MEDS: INSULIN ASPART 100 UNIT/ML SQ PRN ×2 (20:17→23:21)
--- NOTE | 2016-11-02 21:10 | NUR ---
DR MCCLAIN CALLED. STATUS REPORT GIVEN. HAD ASKED FOR INCREASE IN IN FREQUENCY OF PAIN MED AND BENADRYL FOR SLEEP. ORDERS TAKEN.
[2016-11-02] MEDS: DiphenhydrAMINE 25 MG CAPSULE PO PRN (23:05)
[2016-11-02] MEDS: INSULIN DETEMIR 100 UNIT/ML SQ SCH (23:12)
[2016-11-03] VITALS (22 sets, daily range): BP systolic 137–185; BP diastolic 87–123; PULSE 101–123; RESP 11–108; TEMP 97.5–98.2; O2SAT 93–100
[2016-11-03] MEDS: CEFEPIME 1 G in NORMAL SALINE 100 ML IV SCH ×4 (04:19→22:36)
[2016-11-03] MEDS: INSULIN ASPART 100 UNIT/ML SQ PRN ×3 (06:21→20:55)
[2016-11-03] MEDS: SUCRALFATE 1 G TABLET PO SCH ×4 (06:25→20:35)
[2016-11-03] MEDS: ERLOTINIB PO SCH (06:30)
--- NOTE | 2016-11-03 06:30 | NUR ---
STATUS DILAUDID 1MG IV GIVEN FOR ABD AND BACK. 11/14. ZOFRAN 4MG IV FOR NAUSEA. NO EMESIS. TURNED TO RIGHT SIDE WITH ENCOURAGEMENT. SLEPT MUCH OF NIGHT.
[2016-11-03] MEDS: ONDANSETRON 4mg/2ml INJECTION IV PRN (06:35)
[2016-11-03 07:13] LABS: EOSINOPHILS # (AUTO) 0.1 T/MM3 (0-0.5); EOSINOPHILS % (AUTO) 0.8 % (0-4); HCT - HEMATOCRIT 29.9 % (41-53); HGB - HEMOGLOBIN 9.7 GM/DL (13.5-17.5); IMMATURE GRANULOCYTE # (AUTO) 0.03 T/MM3 (0.00-0.03); IMMATURE GRANULOCYTE % (AUTO) 0.3 % (0.0-0.5); LYMPHOCYTES # (AUTO) 0.9 T/MM3 (1-4.8); LYMPHOCYTES % (AUTO) 7.9 % (23-45); MEAN CORPUSCULAR HGB CONC(MCHC 32.4 GM/DL (31-37); MEAN CORPUSCULAR VOLUME 92.6 UM3 (80-100); MONOCYTES # (AUTO) 0.7 T/MM3 (0-0.8); RED BLOOD COUNT 3.23 M/MM3 (4.50-5.90); WBC - WHITE BLOOD COUNT 11.7 T/MM3 (4.5-11.0)
[2016-11-03 07:26] LABS: ALBUMIN 2.7 G/DL (3.5-5.0); ANION GAP 10 MEQ/L (5-15); BUN/CREATININE RATIO 34 RATIO (6-26); CALCIUM 8.6 MG/DL (8.4-10.2); CHLORIDE 106 MEQ/L (98-107); CO2 - CARBON DIOXIDE 24 MEQ/L (22-30); CREATININE 0.5 MG/DL (0.8-1.5); GLOMERULAR FILTRATION RATE 169; GLUCOSE 268 MG/DL (75-110); MAGNESIUM 1.2 MG/DL (1.6-2.3); POTASSIUM 3.5 MEQ/L (3.6-5); SODIUM 140 MEQ/L (134-144)
[2016-11-03] MEDS: VANCOMYCIN 1,500 MG in NORMAL SALINE 500 ML IV SCH (08:15)
[2016-11-03 08:30] LABS: PHOSPHORUS 2.2 MG/DL (2.5-4.5)
--- NOTE | 2016-11-03 08:31 | NUR ---
VANCOMYCIN CONSULT (Day 3) S: 61 y/o M with cholangiocarcinoma with liver metastasis and ascites. Patient admitted with DKA and severe sepsis. Started on cefepime, levofloxacin, and vancomycin empirically for sepsis of unknown origin. Pharmacy consulted to manage vancomycin therapy. O: Ht=73 inches, Wt=63 kg SCr=0.5 mg/dL, CrCl>120 mL/min WBC=11.7 T/mm3 24-h Tmax=98.0F 11/01 CTA: no PE, large hepatic mass and ascites 11/02 CXR: no focal pneumonia Blood cultures, 2 of 2: no growth to date (24 hours) Vancomycin trough concentration~13.6 mcg/mL A/P: Day 3 vancomycin, cefepime, and levofloxacin empirically for severe sepsis of unknown origin. Goal vancomycin trough concentration 15-20 mcg/mL. Currently slightly subtherapeutic; will increase vancomycin to 1.75 g IV q12h. Will continue to follow renal function, clinical status, and await final cultures. Thank you for the consult, Mel Lee, PharmD, BCPS
[2016-11-03] MEDS: VANCOMYCIN 1.75 G in NORMAL SALINE 500 ML IV SCH ×2 (08:41→18:44)
[2016-11-03] MEDS: POLYETHYL.GLYCOL 3350 PACKET 17gm PO SCH (09:00)
[2016-11-03] MEDS ORDERED: LISINOPRIL 20 MG TABLET PO SCH (09:00)
--- NOTE | 2016-11-03 09:16 | PNPDOC ---
Subjective Date DATE: 11/03/16 TIME: 09:14 Subjective States he rested well last night. Pain well controlled. Nausea well controlled. Patient has not determined whether or not he wishes to pursue hospice at this time. Objective Vital Signs Vital signs Vital Signs Date Time Temp Pulse Resp B/P Pulse Ox O2 Delivery O2 Flow Rate FiO2 11/03/16 06:00 106 23 156/102 100 Room Air 11/03/16 04:00 97.5 11/02/16 07:00 1.00 Telemetry Rhythm: Sinus Tachycardia Height (Feet): 6 Height (Inches): 1.00 Weight (Kilograms): 63.100 General General Appearance: Alert, Orientated x 3 Respiratory (Brief) Respiratory: FOUND: clear all laird, equal bilaterally Cardiovascular (Brief) Comments Tachycardic without murmurs rubs or gallops Abdomen (Brief) Comments Mildly diffusely tender. Extremities (Brief) Extremity : Comments No edema cyanosis or clubbing Neurologic (Brief) Neurological: FOUND: cranial 2-12 intact Laboratory Laboratory Laboratory Tests 11/01/16 16:07 11/01/16 20:38 11/01/16 23:51 11/02/16 04:13 11/02/16 10:00 11/02/16 15:59 11/03/16 07:02 Laboratory Tests 11/01/16 16:07 11/02/16 04:13 11/03/16 07:02 Microbiology Microbiology Microbiology Date/Time Source Procedure Growth Status 11/01/16 16:38 Peripheral/Iv Start Blood Culture - Preliminary NO GROWTH AFTER 24 HOURS Resulted 11/01/16 16:07 Peripheral/Iv Start Blood Culture - Preliminary NO GROWTH AFTER 24 HOURS Resulted Sepsis Diagnostic Criteria Sepsis Confirmed/Suspected Infection: Yes SIRS Criteria: Pulse >= 90 beats/min, WBC >=12,000 or <=4,000, RR > or = to 20 (May be secondary due to metabolic acidosis) Severe Sepsis SpO2 <90% or ventilated, Lactate >=2.0 mg/dL Assessment & Plan Assessment Severe sepsis DKA with severe metabolic acidosis Lactic acidosis-sepsis versus liver failure Cholangiocarcinoma, extensive hepatic metastases Ascites Uncontrolled diabetes mellitus, possible DKA Hypertension GERD Hypomagnesemia Hypophosphatemia Anorexia Symptomatically improving. Prognosis is very poor and this is related to the patient. We will replace electrolytes as needed. Blood sugars have been poorly controlled and we will increase his sliding scale regimen. Monitor blood pressure closely and dose adjust medications as needed. Prognosis grim-patient and are meeting with hospice but at present have not decided to sign on. Code Status Full Code Hospital Course Summary Disclaimer The hospital course summary below is not to be considered part of the above Progress Note. CELY WATTERS MD Nov 03, 2016 09:16 CELY WATTERS MD Nov 03, 2016 09:16 Disclaimer The hospital course summary below is not to be considered part of the above Progress Note. CELY WATTERS MD Nov 03, 2016 09:16
[2016-11-03] MEDS: TAMSULOSIN 0.4 MG CAPSULE PO SCH ×2 (09:18→20:35)
[2016-11-03] MEDS: AMLODIPINE 10 MG TABLET PO SCH (09:19)
[2016-11-03] MEDS: METOPROLOL XL 50 MG TABLET PO SCH (09:19)
[2016-11-03] MEDS: LISINOPRIL 40 MG TABLET PO SCH (09:20)
[2016-11-03] MEDS: SENNA + DOCUSATE TAB PO SCH ×2 (09:20→20:35)
[2016-11-03] MEDS: HYDROMORPHONE 2mg/ml INJECTION IV PRN ×5 (09:27→20:33)
[2016-11-03] MEDS: PROMETHAZINE 25 MG INJECTION IV PRN (09:58)
[2016-11-03] MEDS ORDERED: FLEET PHOSPHO-SODA 133 ML ENEMA RECTALLY PRN (10:15)
[2016-11-03] MEDS ORDERED: BISACODYL 10 MG SUPPOSITORY RECTALLY PRN (10:15)
--- NOTE | 2016-11-03 10:16 | PNPDOC ---
Subjective Date DATE: 11/03/16 TIME: 10:07 wm with a history of cholangiocarcinoma. Now with DKA, abdominal distension, abdominal pain and nausea. and [employer] here. Hospitalist aware and has ordered pain and nausea meds. Pt using suppositories and enema at home. Objective Vital Signs Vital Signs 11/02/16 11/02/16 11/02/16 11/03/16 22:30 23:00 23:24 00:00 Pulse 111 111 Resp 23 110 14 22 B/P 182/114 Pulse Ox 100 O2 Delivery Room Air 11/03/16 11/03/16 11/03/16 11/03/16 00:00 01:00 02:00 03:00 Temp 98.0 Pulse 106 109 107 108 Resp 107 90 69 108 B/P 174/104 158/107 173/106 159/105 Pulse Ox 100 100 100 100 O2 Delivery Room Air Room Air Room Air Room Air 11/03/16 11/03/16 11/03/16 11/03/16 04:00 04:00 05:00 06:00 Temp 97.5 Pulse 108 112 103 106 Resp 21 60 45 23 B/P 161/103 167/101 156/102 Pulse Ox 100 100 100 O2 Delivery Room Air Room Air Room Air 11/03/16 09:27 Resp 18 Height (Feet): 6 Height (Inches): 1.00 Weight (Kilograms): 63.100 General Alert, Orientated x 3, No Acute Distress Comments wm in nad in ICU. awake and responsive Respiratory (Brief) Comments cta Abdomen (Brief) Comments full, tense, tender, no rebound no guarding. Psychiatric (Brief) FOUND: alert, attentive, oriented, NOT FOUND: normal affect (mildly distressed, anxious) Laboratory Laboratory Tests Test 11/02/16 11:19 11/02/16 12:05 11/02/16 13:01 11/02/16 14:03 Glucometer 196mg/dL 182mg/dL 191mg/dL 170mg/dL Test 11/02/16 15:58 11/02/16 15:59 11/02/16 18:11 11/02/16 20:14 Glucometer 103mg/dL 193mg/dL 298mg/dL Turbidity < 20 Sodium Level 143MEQ/L Potassium Level 3.3MEQ/L Chloride Level 109MEQ/L Carbon Dioxide Level 22MEQ/L Anion Gap 12MEQ/L Blood Urea Nitrogen 15.0MG/DL Creatinine 0.5MG/DL Glomerular Filtration Rate Calc 169 BUN/Creatinine Ratio 30RATIO Glucose Level 114MG/DL Calculated Osmolality 277MOSM/KG Calcium Level 9.0MG/DL Phosphorus Level 2.2MG/DL Icterus Index < 2 Albumin 3.1G/DL Chemistry Specimen Hemolysis < 15 Test 11/02/16 23:11 11/03/16 06:17 11/03/16 07:02 11/03/16 08:48 Glucometer 280mg/dL 284mg/dL 247mg/dL White Blood Count 11.7T/MM3 Red Blood Count 3.23M/MM3 Hemoglobin 9.7GM/DL Hematocrit 29.9% Mean Corpuscular Volume 92.6UM3 Mean Corpuscular Hemoglobin 30.0UUG Mean Corpuscular Hemoglobin Concent 32.4GM/DL RDW Standard Deviation 46.9FL Platelet Count 150T/MM3 Mean Platelet Volume 9.0UM3 Immature Granulocyte % (Auto) 0.3% Neutrophils (%) (Auto) 85.0% Lymphocytes (%) (Auto) 7.9% Monocytes (%) (Auto) 6.0% Eosinophils (%) (Auto) 0.8% Basophils (%) (Auto) 0.0% Absolute Immature Granulocyte (auto 0.03T/MM3 Absolute Neutrophils (auto) 10.0T/MM3 Absolute Lymphocytes (auto) 0.9T/MM3 Absolute Monocytes (auto) 0.7T/MM3 Absolute Eosinophils (auto) 0.1T/MM3 Absolute Basophils (auto) 0.0T/MM3 Turbidity < 20 Sodium Level 140MEQ/L Potassium Level 3.5MEQ/L Chloride Level 106MEQ/L Carbon Dioxide Level 24MEQ/L Anion Gap 10MEQ/L Blood Urea Nitrogen 17.0MG/DL Creatinine 0.5MG/DL Glomerular Filtration Rate Calc 169 BUN/Creatinine Ratio 34RATIO Glucose Level 268MG/DL Calculated Osmolality 280MOSM/KG Calcium Level 8.6MG/DL Phosphorus Level 2.2MG/DL Magnesium Level 1.2MG/DL Icterus Index < 2 Albumin 2.7G/DL Chemistry Specimen Hemolysis < 15 Vancomycin Level Trough 13.63UG/ML Microbiology Microbiology Date/Time Source Procedure Growth Status 11/01/16 16:38 Peripheral/Iv Start Blood Culture - Preliminary NO GROWTH AFTER 24 HOURS Resulted 11/01/16 16:07 Peripheral/Iv Start Blood Culture - Preliminary NO GROWTH AFTER 24 HOURS Resulted Sepsis Diagnostic Criteria Sepsis Confirmed/Suspected Infection: Yes SIRS Criteria: Pulse >= 90 beats/min, WBC >=12,000 or <=4,000, RR > or = to 20 (May be secondary due to metabolic acidosis) Severe Sepsis SpO2 <90% or ventilated, Lactate >=2.0 mg/dL Assessment & Plan Assessment 1. cholangiocarcinoma 2. DKA 3. abdominal pain 4. ileus/constipation Plan Family requests hospice discussion again-I will relay this wish to RN. For constipation and ileus, plan enema and suppositories in addition to miralax. Pain is controlled with IV dilaudid CO2 and BS are improved. Likely a combination of n/v/dm/ileus. Chemo discussion with Dr. Cuenca next week/saturday Code Status Full Code Hospital Course Summary Disclaimer The visit summary below is not to be considered part of the above Progress Note. MATI YU Nov 03, 2016 10:10
--- NOTE | 2016-11-03 10:30 | NUR ---
Dr Mix, Oncology and Dr Morales, hopitalist have seen patient. Orders received for different pain meds dosing and additional nausea medications. Patient given Dulcolax Supp as ordered, then up to bedside commode for 30 minutes, then fleets enema given.
--- NOTE | 2016-11-03 11:00 | NUR ---
Stool has only small brown stool after straining for another 25 minutes. HR up to 160s, patient tiring, back to bed. Abdomen continues to be firm and round. PAC and 2 peripheral IVLs patent. Urine clear and light yellow, adequate amounts.
[2016-11-03] MEDS ORDERED: ONDANSETRON 4mg/2ml INJECTION IV PRN (13:00)
--- NOTE | 2016-11-03 13:30 | NUR ---
Takes only small amounts for breakfast and lunch, "my throat is just too sore and it hurts all the way down." Dilaudid given regularly.
[2016-11-03] MEDS: METOCLOPRAMIDE 10mg/2ml INJECTION IV SCH ×2 (15:08→20:38)
[2016-11-03] MEDS: 1/2 NS IV SCH ×2 (16:30→19:52)
[2016-11-03] MEDS: POTASSIUM PHOSPHATE IV SCH ×2 (16:30→19:52)
[2016-11-03] MEDS: LEVOFLOXACIN 750 mg IVPB 750 MG in D5W 150 ML IV SCH (16:31)
--- NOTE | 2016-11-03 20:15 | NUR ---
INTAKE TOOK 320CC OF BROTH AND A SHAKE. SLIGHT NAUSEA BUT NOT EMESIS. STATES HE FEELS HE HAS NO APPETITE. EATING ONLY BECAUSE HE SHOULD.
[2016-11-03] MEDS: INSULIN DETEMIR 100 UNIT/ML SQ SCH (22:35)
[2016-11-04] VITALS (23 sets, daily range): BP systolic 132–186; BP diastolic 75–110; PULSE 99–122; RESP 5–63; TEMP 97.2–98.5; O2SAT 97–100
[2016-11-04] MEDS: DiphenhydrAMINE 25 MG CAPSULE PO PRN ×2 (00:40→22:50)
[2016-11-04] MEDS: HYDROMORPHONE 2mg/ml INJECTION IV PRN ×8 (00:40→20:05)
[2016-11-04] MEDS: INSULIN ASPART 100 UNIT/ML SQ PRN ×2 (01:22→05:00)
[2016-11-04] MEDS: METOCLOPRAMIDE 10mg/2ml INJECTION IV SCH ×4 (03:05→21:07)
[2016-11-04] MEDS: CEFEPIME 1 G in NORMAL SALINE 100 ML IV SCH ×4 (04:23→22:47)
[2016-11-04 04:42] LABS: HCT - HEMATOCRIT 27.9 % (41-53); MEAN CORPUSCULAR HGB 29.8 UUG (26-34); MEAN CORPUSCULAR HGB CONC(MCHC 32.3 GM/DL (31-37); MEAN CORPUSCULAR VOLUME 92.4 UM3 (80-100); MEAN PLATELET VOLUME 9.3 UM3 (9.4-12.4); RED BLOOD COUNT 3.02 M/MM3 (4.50-5.90); WBC - WHITE BLOOD COUNT 8.1 T/MM3 (4.5-11.0)
[2016-11-04 04:56] LABS: ANION GAP 10 MEQ/L (5-15); BUN/CREATININE RATIO 24 RATIO (6-26); CALCIUM 8.7 MG/DL (8.4-10.2); CHLORIDE 104 MEQ/L (98-107); CO2 - CARBON DIOXIDE 25 MEQ/L (22-30); CREATININE 0.5 MG/DL (0.8-1.5); GLOMERULAR FILTRATION RATE 169; GLUCOSE 173 MG/DL (75-110); MAGNESIUM 1.2 MG/DL (1.6-2.3); POTASSIUM 3.1 MEQ/L (3.6-5); SODIUM 139 MEQ/L (134-144)
[2016-11-04] MEDS: VANCOMYCIN 1.75 G in NORMAL SALINE 500 ML IV SCH ×2 (05:02→18:02)
[2016-11-04 05:31] LABS: BAND NEUTROPHILS # 0.1 T/MM3; LYMPHOCYTES # (MANUAL) 1.5 T/MM3 (1-4.8); NEUTROPHILS #(MANUAL)-ABSOLUTE 6.5 T/MM3 (1.8-7.7); TOTAL CELLS COUNTED 100 %
[2016-11-04] MEDS: SUCRALFATE 1 G TABLET PO SCH ×4 (06:21→21:08)
--- NOTE | 2016-11-04 06:25 | NUR ---
PAIN C/O PAIN IN ABD AND BACK. WANTED TO TRY LYING ON RIGHT SIDE BUT WAS TO UNCOMFORTABLE. TURNED BACKED TO LEFT SIDE. DILAUDID GIVEN FOR PAIN.
[2016-11-04] MEDS: ERLOTINIB PO SCH (06:30)
[2016-11-04] MEDS ORDERED: NORMAL SALINE IV SCH (07:45)
[2016-11-04] MEDS ORDERED: MAGNESIUM SULFATE IV SCH (07:45)
--- NOTE | 2016-11-04 08:00 | NUR ---
Status up to bedside commode, fleets enema given, held well for 10 minutes while bath being given. Then has small kaba BM. abdomen unchanged.
[2016-11-04] MEDS: TAMSULOSIN 0.4 MG CAPSULE PO SCH ×2 (09:00→21:05)
[2016-11-04] MEDS: POLYETHYL.GLYCOL 3350 PACKET 17gm PO SCH (09:00)
[2016-11-04] MEDS: SENNA + DOCUSATE TAB PO SCH ×2 (09:00→21:05)
[2016-11-04] MEDS: POTASSIUM CHLORIDE 10 MEQ in WATER FOR INJECTION 100 ML IV SCH ×4 (09:02→13:30)
--- NOTE | 2016-11-04 10:17 | PNPDOC ---
Subjective Date DATE: 11/04/16 TIME: 10:13 case d/ , rn. Pt still in ICU. Case d/w Dr. Cuenca. Hospice a consideration. Pt more comfy this am. Small BM. Still on IV pain meds. BS and CO2 improved. Pt aware of dx of cholangiocarcinoma and treatments he has been on. Objective Vital Signs Vital Signs 11/03/16 11/04/16 11/04/16 11/04/16 23:00 00:00 00:00 00:40 Temp 97.5 Pulse 102 103 101 Resp 14 17 B/P 172/106 161/97 Pulse Ox 100 100 O2 Delivery Room Air Room Air 11/04/16 11/04/16 11/04/16 11/04/16 01:00 02:00 03:00 04:00 Temp 97.2 Pulse 101 101 109 104 Resp 16 11 20 27 B/P 165/101 186/102 159/102 171/102 Pulse Ox 99 100 100 100 O2 Delivery Room Air Room Air Room Air Room Air 11/04/16 11/04/16 11/04/16 11/04/16 04:00 05:00 06:00 06:25 Pulse 102 101 102 Resp 19 63 22 22 B/P 172/101 162/103 Pulse Ox 100 99 O2 Delivery Room Air Room Air 11/04/16 11/04/16 11/04/16 11/04/16 07:09 07:25 07:45 08:00 Pulse 104 110 Resp 21 16 18 26 B/P 182/81 Pulse Ox 97 11/04/16 11/04/16 08:14 09:50 Temp 98.2 Pulse 106 Resp 16 26 B/P 132/75 Pulse Ox 99 Height (Feet): 6 Height (Inches): 1.00 Weight (Kilograms): 63.100 General Alert, Orientated x 3, No Acute Distress Respiratory (Brief) Respiratory: FOUND: clear all laird, equal bilaterally, other, rales, spasm, symmetrical, tenderness, wheezes Cardiovascular (Brief) Cardiac: FOUND: click, gallop, murmur, other, pedal edema, peripheral edema, regular rate, regular rhythm, rub Abdomen (Brief) Abdominal: FOUND: BS normo active x4, distended, hepatosplenomegaly, other, pulsatile mass, soft, tender Psychiatric (Brief) FOUND: alert, attentive, oriented Laboratory Laboratory Tests Test 11/03/16 13:00 11/03/16 16:55 11/03/16 20:50 11/04/16 01:18 Glucometer 224mg/dL 217mg/dL 208mg/dL 201mg/dL Test 11/04/16 04:20 11/04/16 04:55 11/04/16 08:38 White Blood Count 8.1T/MM3 Red Blood Count 3.02M/MM3 Hemoglobin 9.0GM/DL Hematocrit 27.9% Mean Corpuscular Volume 92.4UM3 Mean Corpuscular Hemoglobin 29.8UUG Mean Corpuscular Hemoglobin Concent 32.3GM/DL RDW Standard Deviation 46.7FL Platelet Count 112T/MM3 Mean Platelet Volume 9.3UM3 Neutrophils % (Manual) 80.0% Band Neutrophils % 1.0% Lymphocytes % (Manual) 19.0% Absolute Neutrophils (Manual) 6.5T/MM3 Band Neutrophils # 0.1T/MM3 Lymphocytes # (Manual) 1.5T/MM3 Red Cell Morphology Comment Normal Turbidity < 20 Sodium Level 139MEQ/L Potassium Level 3.1MEQ/L Chloride Level 104MEQ/L Carbon Dioxide Level 25MEQ/L Anion Gap 10MEQ/L Blood Urea Nitrogen 12.0MG/DL Creatinine 0.5MG/DL Glomerular Filtration Rate Calc 169 BUN/Creatinine Ratio 24RATIO Glucose Level 173MG/DL Calculated Osmolality 272MOSM/KG Calcium Level 8.7MG/DL Magnesium Level 1.2MG/DL Icterus Index < 2 Chemistry Specimen Hemolysis < 15 Glucometer 185mg/dL 128mg/dL Microbiology Microbiology Date/Time Source Procedure Growth Status 11/01/16 16:38 Peripheral/Iv Start Blood Culture - Preliminary NO GROWTH AFTER 48 HOURS Resulted 11/01/16 16:07 Peripheral/Iv Start Blood Culture - Preliminary NO GROWTH AFTER 48 HOURS Resulted Sepsis Diagnostic Criteria Sepsis Confirmed/Suspected Infection: Yes SIRS Criteria: Pulse >= 90 beats/min, WBC >=12,000 or <=4,000, RR > or = to 20 Severe Sepsis SpO2 <90% or ventilated, Lactate >=2.0 mg/dL Assessment & Plan Assessment 1. cholangiocarcinoma 2. DKA 3. abdominal pain 4. ileus/constipation Plan Family requests hospice discussion again-I will relay this wish to RN. For constipation and ileus, plan enema and suppositories in addition to miralax. Pain is controlled with IV dilaudid CO2 and BS are improved. Likely a combination of n/v/dm/ileus. Saturday 11/04 pt more comfy. Hospice a consideration bs better as well as CO2. Limited BM with attempts. Dr. Palma to see pt in AM. Chemo discussion with Dr. Cuenca next week/saturday Code Status Full Code Hospital Course Summary Disclaimer The visit summary below is not to be considered part of the above Progress Note. MATI UY Nov 04, 2016 10:17
--- NOTE | 2016-11-04 10:51 | PNPDOC ---
Subjective Date DATE: 11/04/16 TIME: 10:47 Subjective Pain is better controlled. Abdominal distention is unchanged. Only having minimal relief with enemas. Case discussed with at bedside. Objective Vital Signs Vital signs Vital Signs Date Time Temp Pulse Resp B/P Pulse Ox O2 Delivery O2 Flow Rate FiO2 11/04/16 09:50 26 11/04/16 08:14 98.2 106 132/75 99 11/04/16 06:00 Room Air 11/02/16 07:00 1.00 Telemetry Rhythm: Sinus Tachycardia Height (Feet): 6 Height (Inches): 1.00 Weight (Kilograms): 63.100 General Comments HEENT-PERRLA; EOMI CV-tachycardic Lungs-clear to auscultation anteriorly Abdomen-markedly distended, hypoactive bowel sounds, diffusely tender, soft Extremities-no edema cyanosis or clubbing Neurological-cranial nerves II through XII grossly intact Laboratory Laboratory Laboratory Tests 11/02/16 15:59 11/03/16 07:02 11/04/16 04:20 Laboratory Tests 11/03/16 07:02 11/04/16 04:20 Microbiology Microbiology Microbiology Date/Time Source Procedure Growth Status 11/01/16 16:38 Peripheral/Iv Start Blood Culture - Preliminary NO GROWTH AFTER 48 HOURS Resulted 11/01/16 16:07 Peripheral/Iv Start Blood Culture - Preliminary NO GROWTH AFTER 48 HOURS Resulted Sepsis Diagnostic Criteria Sepsis Confirmed/Suspected Infection: Yes SIRS Criteria: Pulse >= 90 beats/min, WBC >=12,000 or <=4,000, RR > or = to 20 Severe Sepsis SpO2 <90% or ventilated, Lactate >=2.0 mg/dL Assessment & Plan Assessment Assessment Severe sepsis DKA with severe metabolic acidosis Lactic acidosis-sepsis versus liver failure Cholangiocarcinoma, extensive hepatic metastases Ascites Uncontrolled diabetes mellitus, possible DKA Hypertension GERD Hypomagnesemia Hypophosphatemia Anorexia Symptomatically improving. Prognosis is very poor and this is related to the patient. We will replace electrolytes as needed. Will check KUB for worsening abdominal distention. Continue sliding scale for diabetes. Monitor blood pressure closely and dose adjust medications as needed. Prognosis grim-patient and are meeting with hospice again but at present have not decided to sign on. Code Status Full Code Hospital Course Summary Disclaimer The hospital course summary below is not to be considered part of the above Progress Note. CELY WATTERS MD Nov 04, 2016 10:50
[2016-11-04] MEDS: METOPROLOL XL 50 MG TABLET PO SCH (12:40)
[2016-11-04] MEDS: AMLODIPINE 10 MG TABLET PO SCH (12:40)
[2016-11-04] MEDS: LISINOPRIL 40 MG TABLET PO SCH (12:40)
--- NOTE | 2016-11-04 13:00 | NUR ---
Helps to turn, skin in good condition.
--- NOTE | 2016-11-04 13:47 | DI ---
Indication: ITS.REASON: abdominal distention PROCEDURE: KUB: Encounter: Initial Comparison: None Findings: Dilated colon. Mildly prominent small bowel in the left abdomen up to 3.1 cm in diameter. Postoperative and degenerative changes in the thoracolumbar spine. Mild right colonic stool burden. Impression: Findings of a generalized mild ileus. .
[2016-11-04] MEDS: 1/2 NS IV SCH (15:55)
[2016-11-04] MEDS: POTASSIUM PHOSPHATE IV SCH (15:55)
--- NOTE | 2016-11-04 18:00 | NUR ---
Status Slept much today, pain meds at regular intervals. Pain controlled 'pretty well.' BPs still high at times. Unable to take anything po except sips.
[2016-11-04] MEDS: LEVOFLOXACIN 750 mg IVPB 750 MG in D5W 150 ML IV SCH (20:00)
[2016-11-04] MEDS: INSULIN DETEMIR 100 UNIT/ML SQ SCH (22:46)
[2016-11-05] VITALS (27 sets, daily range): BP systolic 141–184; BP diastolic 93–115; PULSE 98–140; RESP 9–26; TEMP 97.1–98.6; O2SAT 92–100
[2016-11-05] MEDS: HYDROMORPHONE 2mg/ml INJECTION IV PRN ×11 (00:09→23:43)
--- NOTE | 2016-11-05 02:10 | NUR ---
ABD DISCOMFORT UP TO COMMODE PER REQUEST. NO BM. ABD VERY UNCOMFORTABLE AND DISTENDED. PAIN MED GIVEN.
[2016-11-05] MEDS: METOCLOPRAMIDE 10mg/2ml INJECTION IV SCH ×4 (02:20→21:46)
[2016-11-05] MEDS: CEFEPIME 1 G in NORMAL SALINE 100 ML IV SCH ×4 (04:23→22:07)
[2016-11-05] MEDS: VANCOMYCIN 1.75 G in NORMAL SALINE 500 ML IV SCH ×2 (05:05→18:02)
--- NOTE | 2016-11-05 05:45 | NUR ---
DR PALACIOS HERE TO SEE PT. PT STATED AFTER DR PALACIOS LEFT THAT HE WAS READY TO GO ON HOSPICE NOW. PT TEARFUL. TALKING ABOUT HIS FAMILY AND HOSPICE.
--- NOTE | 2016-11-05 05:48 | PNPDOC ---
Subjective Date DATE: 11/05/16 TIME: 05:40 Continues with pain and abdominal distension. Feels like need for BM but little results. Ready for hospice at this time Objective Vital Signs Vital Signs 11/04/16 11/04/16 11/04/16 11/04/16 18:12 19:00 20:00 20:00 Temp 97.4 Pulse 104 112 122 Resp 28 43 24 9 B/P 158/106 148/99 Pulse Ox 99 100 O2 Delivery Room Air Room Air 11/04/16 11/04/16 11/04/16 11/04/16 20:05 21:00 22:00 23:00 Pulse 112 109 109 Resp 38 23 11 13 B/P 165/106 165/101 175/108 Pulse Ox 99 100 97 O2 Delivery Room Air Room Air Room Air 11/05/16 11/05/16 11/05/16 11/05/16 00:00 00:00 00:09 01:00 Temp 97.7 Pulse 105 106 104 Resp 18 17 24 15 B/P 175/101 160/110 Pulse Ox 99 100 O2 Delivery Room Air Room Air 11/05/16 11/05/16 11/05/16 02:16 03:20 04:21 Resp 14 16 19 Height (Feet): 6 Height (Inches): 1.00 Weight (Kilograms): 63.100 General Alert, No Acute Distress Eyes (Brief) Eyes: FOUND: EOMI, PERRL, NOT FOUND: scleral icterus Neck (Brief) Neck: NOT FOUND: adenopathy Respiratory (Brief) Respiratory: FOUND: clear all laird, equal bilaterally, NOT FOUND: rales Cardiovascular (Brief) Cardiac: FOUND: pedal edema, regular rate, regular rhythm Abdomen (Brief) Abdominal: FOUND: BS normo active x4 (hypoactive to absent), distended, hepatosplenomegaly, tender (Brief) FOUND: other ([place] in place) Lymphatic (Brief) NOT FOUND: adenopathy Musculoskeletal (Brief) NOT FOUND: spasm, tenderness Neurologic (Brief) FOUND: cranial 2-12 intact Psychiatric (Brief) FOUND: alert, attentive, oriented Laboratory Item Value Date Time White Blood Count 8.1 T/MM3 11/04/16 0420 White Blood Count 15.3 T/MM3 H 11/01/16 1607 Hemoglobin 9.0 GM/DL L 11/04/16 0420 Hemoglobin 11.9 GM/DL L 11/01/16 1607 Platelet Count 112 T/MM3 L 11/04/16 0420 Platelet Count 279 T/MM3 11/01/16 1607 Glucometer 141 mg/dL H 11/05/16 0434 Potassium Level 3.1 MEQ/L L 11/04/16 0420 Carbon Dioxide Level 25 MEQ/L 11/04/16 0420 Creatinine 0.5 MG/DL L 11/04/16 0420 Magnesium Level 1.2 MG/DL L 11/04/16 0420 Laboratory Tests Test 11/04/16 08:38 11/04/16 12:57 11/04/16 17:08 11/04/16 20:19 Glucometer 128mg/dL 117mg/dL 106mg/dL 99mg/dL Test 11/05/16 00:14 11/05/16 04:34 Glucometer 140mg/dL 141mg/dL Sepsis Diagnostic Criteria Sepsis Confirmed/Suspected Infection: Yes SIRS Criteria: Pulse >= 90 beats/min, WBC >=12,000 or <=4,000, RR > or = to 20 Severe Sepsis SpO2 <90% or ventilated, Lactate >=2.0 mg/dL Assessment & Plan Assessment 1. cholangiocarcinoma Progressive disease. Ascites probably secondary to abdominal carcinomatosis or liver failure Patient ready for hospice. Problem is keeping him out of DKA and controlling symptoms. 2. DKA Much improved. CO2 25 3. abdominal pain secondary to mass and constipation/ileus 4. Hypomagnesemia. 1.2 on 11/04 and received 4 gm. This is contributing to ileus. 5. Ileus/constipation Saturday 11/04 pt more comfy. Hospice a consideration bs better as well as CO2. Limited BM with attempts. Dr. Palma to see pt in AM. Chemo discussion with Dr. Cuenca next week/saturday Plan/Intensity of Service Plan Discussed hospice Patient willing at this time. For constipation and ileus, Continue enema and suppositories in addition to miralax. Mag replacement Pain is controlled with IV dilaudid CO2 and BS are improved. Likely a combination of n/v/dm/ileus. Code Status Full Code Hospital Course Summary Disclaimer The visit summary below is not to be considered part of the above Progress Note. DILCIA CUENCA November 05, 2016 05:48
--- NOTE | 2016-11-05 05:50 | NUR ---
PAIN MOSTLY CONTROLLED BY DILAUDID. SLEEPS AT LONG INTERVALS. DENIES NAUSEA.
[2016-11-05] MEDS: SUCRALFATE 1 G TABLET PO SCH ×4 (05:54→21:56)
[2016-11-05] MEDS: ERLOTINIB PO SCH (06:30)
--- NOTE | 2016-11-05 08:07 | PNPDOC ---
Subjective Date DATE: 11/05/16 TIME: 08:06 Subjective And states he feels a little better this morning. Still not having bowel movements or passing gas. Pain much better controlled. Oncology input appreciated. Objective Vital Signs Vital signs Vital Signs Date Time Temp Pulse Resp B/P Pulse Ox O2 Delivery O2 Flow Rate FiO2 11/05/16 06:50 15 11/05/16 06:00 110 152/109 100 Room Air 11/05/16 04:01 97.1 11/02/16 07:00 1.00 Telemetry Rhythm: Sinus Tachycardia Height (Feet): 6 Height (Inches): 1.00 Weight (Kilograms): 63.100 General Comments HEENT-PERRLA; EOMI CV-tachycardic Lungs-clear to auscultation anteriorly Abdomen-markedly distended, hypoactive bowel sounds, diffusely tender, soft Extremities-no edema cyanosis or clubbing Neurological-cranial nerves II through XII grossly intact Laboratory Laboratory Laboratory Tests 11/04/16 04:20 Laboratory Tests 11/04/16 04:20 Sepsis Diagnostic Criteria Sepsis Confirmed/Suspected Infection: Yes SIRS Criteria: Pulse >= 90 beats/min, WBC >=12,000 or <=4,000, RR > or = to 20 Severe Sepsis SpO2 <90% or ventilated, Lactate >=2.0 mg/dL Assessment & Plan Assessment Assessment Severe sepsis DKA with severe metabolic acidosis Lactic acidosis-sepsis versus liver failure Cholangiocarcinoma, extensive hepatic metastases Ascites Uncontrolled diabetes mellitus, possible DKA Hypertension GERD Hypomagnesemia Hypophosphatemia Anorexia Symptomatically improving. Prognosis is very poor and this is related to the patient. We will replace electrolytes as needed. Abdominal distention unchanged. Discussed this with the patient and he is agreeable that if there is no improvement in the next 24 hours that a CAT scan will be done. Oncology note appreciated and patient and are to consider pursuing hospice at time of discharge. They state they want to get him as comfortable as possible so that he can enjoy life as much as he can and not have to come back to the hospital. Continue sliding scale for diabetes. Monitor blood pressure closely and dose adjust medications as needed. Code Status Full Code Hospital Course Summary Disclaimer The hospital course summary below is not to be considered part of the above Progress Note. CELY WATTERS MD November 05, 2016 08:07
[2016-11-05] MEDS: OXYCODONE I.R. 15 MG TABLET PO PRN ×4 (09:20→23:53)
[2016-11-05] MEDS: POLYETHYL.GLYCOL 3350 PACKET 17gm PO SCH (09:33)
[2016-11-05] MEDS: LACTULOSE 20 GM/30 ML UD PO PRN (09:34)
[2016-11-05] MEDS: METOPROLOL XL 50 MG TABLET PO SCH (09:34)
[2016-11-05] MEDS: TAMSULOSIN 0.4 MG CAPSULE PO SCH ×2 (09:34→21:56)
[2016-11-05] MEDS: SENNA + DOCUSATE TAB PO SCH ×2 (09:35→21:56)
[2016-11-05] MEDS: LISINOPRIL 40 MG TABLET PO SCH (09:35)
[2016-11-05] MEDS: AMLODIPINE 10 MG TABLET PO SCH (09:35)
[2016-11-05] MEDS: PROMETHAZINE 25 MG INJECTION IV PRN ×2 (11:08→16:41)
[2016-11-05] MEDS: 1/2 NS IV SCH (12:42)
[2016-11-05] MEDS: POTASSIUM PHOSPHATE IV SCH (12:42)
--- NOTE | 2016-11-05 12:49 | NUR ---
STATUS/PAIN DILAUDID 2 MG IVP SLOWLY GIVEN. HAVE GIVEN 1 MG IV Q 2 H THIS SHIFT WITH SOME SLEEP, BUT PAIN REMAINING GREATER THAN 5. UNABLE TO TURN TO SIDES, BUT ASSISTED IN REPOSITIONING. MEPILEX INTACT TO COCCYX. BP. SPO2 STABLE. REMAINS TACHY WITH HR 110'S THIS SHIFT.
--- NOTE | 2016-11-05 12:57 | NUR ---
Nutrition risk f/u Diet: Clear liquid; Pt complains of pain and distended abdomen, r/t medical condition. [place] [employer] Mighty shake at meals.
--- NOTE | 2016-11-05 14:46 | NUR ---
COMFORT DONUT PILLOW TO COCCYX. ROXICODONE 15 MG PO GIVEN FOR COMFORT. AND 2 YOUNGEST CHILDREN HERE.
--- NOTE | 2016-11-05 16:17 | NUR ---
CM CM IN TO TALK WITH PT, PT ASLEEP NOT PRESENT. JESUS MORELOS RN FOR [facility] CALLED CM TO ASK ABOUT DC PLANS. PLANS ARE TO CONTINUE WITH IV ANTIBIOTICS PER AND NURSE OLIVAREZ AND DC TO HOME WITH [facility] WHEN HE AT TIME OF DC.
[2016-11-05] MEDS ORDERED: METOPROLOL 5mg/5ml INJECTION IV ONE (18:00)
--- NOTE | 2016-11-05 18:49 | NUR ---
CARDIAC DR NOTIFIED RE ELEVATED HR 128, ELEVATED BP RANGE. LOPRESSOR 5 MG IVP SLOWLY GIVEN. HR NOW 108.
--- NOTE | 2016-11-05 18:50 | NUR ---
STATUS SLEEPS SOUNDLY BETWEEN PAIN MEDICATIONS. WHEN AWAKE, RATES PAIN 4-7. MINIMAL PO INTAKE TODAY. PHENERGAN 12.5 MG IVP X 2 TODAY FOR NAUSEA CONTROL. SM AMT EMESIS THIS AM.
[2016-11-05] MEDS: INSULIN ASPART 100 UNIT/ML SQ PRN (20:05)
[2016-11-05] MEDS: LEVOFLOXACIN 750 mg IVPB 750 MG in D5W 150 ML IV SCH (20:20)
[2016-11-05] MEDS: INSULIN DETEMIR 100 UNIT/ML SQ SCH (22:00)
--- NOTE | 2016-11-05 22:00 | NUR ---
Cardiac/Pain notified of increased HR in the 120s. 25mg Metoprolol PO was ordered and administered. EKG was also preformed and result were sinus tachy with frequent PVCs. Patient has also had sudden severe pain in his abdomen which is currently being controlled with PRN Dilaudid and Roxicodone. Patient verbalized that it felt like "gas", but unable to pass any. Will continue to monitor closely.
[2016-11-06] VITALS (20 sets, daily range): BP systolic 123–159; BP diastolic 74–101; PULSE 106–126; RESP 10–23; TEMP 97.4–98.1; O2SAT 95–100
[2016-11-06] MEDS: LACTULOSE 20 GM/30 ML UD PO PRN (01:20)
--- NOTE | 2016-11-06 02:33 | NUR ---
Code Status and niece came to visit and see how the patient was doing. Was able to discuss code status with the and she stated that the patient was to remain full code. I discussed with the about what happens during CPR and she verbalized that she understood how traumatic it can be and discussed with her about it in the past. She stated that even when he was fully with it, he wanted everything done to stay alive. Also discussed about hospice and she stated she would like for the patient to go home today, but understood that [facility] needed to ensure they had everything at the house they needed before D/C to properly care for the patient.
[2016-11-06] MEDS: METOCLOPRAMIDE 10mg/2ml INJECTION IV SCH ×3 (02:52→15:09)
[2016-11-06] MEDS: HYDROMORPHONE 2mg/ml INJECTION IV PRN ×5 (02:53→16:54)
[2016-11-06] MEDS: CEFEPIME 1 G in NORMAL SALINE 100 ML IV SCH ×2 (04:30→10:52)
[2016-11-06] MEDS: 1/2 NS IV SCH ×3 (04:31→15:09)
[2016-11-06] MEDS: POTASSIUM PHOSPHATE IV SCH ×3 (04:31→15:09)
--- NOTE | 2016-11-06 05:32 | NUR ---
Shift Summary Patient has slept off and on during the night and has rested better with in room. Mild nausea and SOA reported with increase in abdominal pain. Pain has been treated with constant Dilaudid and Roxicodone (see eMAR for amount). HR was in the 120s most of the night and dropped to the 110s when arrived around 0230 and has frequent PVCs. BP has been 130-150s/80-100s after the one time dose of 25mg Metoprolol. Abdomen distended and firm, with bowel sounds only heard in upper left quadrant. Urine output has been decreasing to the 20-30 mls/hr and is cloudy with sediment. Patient has been only orientated to Person during the night and continues to have little to no appetite.
[2016-11-06 05:45] LABS: HCT - HEMATOCRIT 29.2 % (41-53); HGB - HEMOGLOBIN 9.4 GM/DL (13.5-17.5); MEAN CORPUSCULAR HGB 29.7 UUG (26-34); MEAN CORPUSCULAR HGB CONC(MCHC 32.2 GM/DL (31-37); MEAN CORPUSCULAR VOLUME 92.4 UM3 (80-100); MEAN PLATELET VOLUME 10.2 UM3 (9.4-12.4); RED BLOOD COUNT 3.16 M/MM3 (4.50-5.90); WBC - WHITE BLOOD COUNT 12.9 T/MM3 (4.5-11.0)
[2016-11-06 05:53] LABS: ANION GAP 12 MEQ/L (5-15); BUN/CREATININE RATIO 24 RATIO (6-26); CALCIUM 8.7 MG/DL (8.4-10.2); CHLORIDE 99 MEQ/L (98-107); CO2 - CARBON DIOXIDE 27 MEQ/L (22-30); CREATININE 0.5 MG/DL (0.8-1.5); GLOMERULAR FILTRATION RATE 169; GLUCOSE 150 MG/DL (75-110); MAGNESIUM 1.4 MG/DL (1.6-2.3); POTASSIUM 3.1 MEQ/L (3.6-5); SODIUM 138 MEQ/L (134-144)
[2016-11-06] MEDS: VANCOMYCIN 1.75 G in NORMAL SALINE 500 ML IV SCH (06:10)
[2016-11-06] MEDS: SUCRALFATE 1 G TABLET PO SCH ×3 (06:28→17:08)
[2016-11-06 06:30] LABS: LYMPHOCYTES # (MANUAL) 0.1 T/MM3 (1-4.8); MONOCYTES # (MANUAL) 0.9 T/MM3 (0-0.8); NEUTROPHILS #(MANUAL)-ABSOLUTE 11.9 T/MM3 (1.8-7.7); TOTAL CELLS COUNTED 100 %
[2016-11-06] MEDS: ERLOTINIB PO SCH (06:30)
[2016-11-06] MEDS: OXYCODONE I.R. 15 MG TABLET PO PRN (06:34)
[2016-11-06] MEDS ORDERED: MAGNESIUM SULFATE IV ONE (07:30)
[2016-11-06] MEDS ORDERED: NORMAL SALINE IV ONE (07:30)
--- NOTE | 2016-11-06 07:37 | PNPDOC ---
Subjective Date DATE: 11/06/16 TIME: 07:33 Subjective Passing gas this morning. No events overnight. Pain is about a 6 at baseline. Objective Vital Signs Vital signs Vital Signs Date Time Temp Pulse Resp B/P Pulse Ox O2 Delivery O2 Flow Rate FiO2 11/06/16 04:00 118 14 11/06/16 04:00 97.8 140/97 99 Room Air 11/02/16 07:00 1.00 Telemetry Rhythm: Sinus Tachycardia Height (Feet): 6 Height (Inches): 1.00 Weight (Kilograms): 69.600 General Comments General--awake and alert in no acute distress. HEENT--PERRLA EOMI CV--tachycardic Lungs--clear auscultation bilaterally Abdomen--soft, diffusely tender and distended Extremities--no edema cyanosis or clubbing Neurological--nonfocal Rectal--deferred Genitourinary--deferred Skin--warm dry and intact without any evidence of rashes Laboratory Laboratory Laboratory Tests 11/06/16 04:24 Laboratory Tests 11/06/16 04:24 Sepsis Diagnostic Criteria Sepsis Confirmed/Suspected Infection: Yes SIRS Criteria: Pulse >= 90 beats/min, WBC >=12,000 or <=4,000, RR > or = to 20 Severe Sepsis SpO2 <90% or ventilated, Lactate >=2.0 mg/dL Assessment & Plan Assessment Assessment Severe sepsis - resolved. DKA with severe metabolic acidosis - resolved. Lactic acidosis-sepsis versus liver failure Cholangiocarcinoma, extensive hepatic metastases Ascites Hypertension GERD Hypomagnesemia Hypophosphatemia Anorexia Symptomatically improving. Prognosis is very poor and this is related to the patient. We will replace electrolytes as needed. Abdominal distention unchanged however is passing gas this morning. Will hold off on CT scan at this time. Oncology note on 11/05/16 appreciated and patient and are to consider pursuing hospice at time of discharge. They state they want to get him as comfortable as possible so that he can enjoy life as much as he can and not have to come back to the hospital. Continue sliding scale for diabetes. Monitor blood pressure closely and dose adjust medications as needed. Code Status Full Code Hospital Course Summary Disclaimer The hospital course summary below is not to be considered part of the above Progress Note. CELY WATTERS MD November 06, 2016 07:37
[2016-11-06] MEDS: POLYETHYL.GLYCOL 3350 PACKET 17gm PO SCH (08:27)
[2016-11-06] MEDS: POTASSIUM CHLORIDE 10 MEQ, LIDOCAINE 1% 10 MG in NORMAL SALINE 100 ML IV SCH ×4 (08:28→12:48)
[2016-11-06] MEDS: TAMSULOSIN 0.4 MG CAPSULE PO SCH (08:33)
[2016-11-06] MEDS: LISINOPRIL 40 MG TABLET PO SCH (08:34)
[2016-11-06] MEDS: SENNA + DOCUSATE TAB PO SCH (08:34)
[2016-11-06] MEDS: AMLODIPINE 10 MG TABLET PO SCH (08:34)
[2016-11-06] MEDS: METOPROLOL XL 50 MG TABLET PO SCH (08:34)
--- NOTE | 2016-11-06 08:56 | NUR ---
Hospice came out to nurse's station first thing this morning and said they were ready to go home today. All she needed from hospice was a bed rail and BSC. This RN contacted lOga BREWSTER who gave this RN [facility]'s number ([facility] [phone]). Awilda contacted [facility] () regarding needs. [facility] Will be ready early afternoon with all the equipment needed for home. Hospitalist informed and in agreement with plan.
[2016-11-06] MEDS ORDERED: FENTANYL 100MCG/HR PATCH TD ONE (11:00)
--- NOTE | 2016-11-06 11:25 | NUR ---
Pain Pain patch (fentanyl) applied to left shoulder per orders.
[2016-11-06] MEDS: INSULIN ASPART 100 UNIT/ML SQ PRN (12:14)
[2016-11-06] MEDS ORDERED: MORP20SY BUC (12:19)
[2016-11-06] MEDS ORDERED: FENT1PAT68 TOP (12:19)
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
--- NOTE | 2016-11-06 13:54 | NUR ---
Update Update provided to pt's . Discussion included dia care and pain medication.
--- NOTE | 2016-11-06 16:24 | NUR ---
NARCISA BREWSTER TALKED WITH JESUS GUZMAN [facility] PT TO BE DC'D TODAY PER FAMILY REQUEST AND DR ELIZABETH. PT FAMILY AWARE TO CONTACT CM SHOULD NEEDS ARISE.
--- NOTE | 2016-11-06 18:01 | NUR ---
Discharge Pt discharged home in poor condition. Pt discharged in [facility]. Discharge instructions printed and given to pt. police patrol lieutenant picked up pt's 2 pain medication prescriptions. All of pt's personal belongings sent with. and [facility] nurse called prior to pt's leaving. Discharge paperwork given to EMS personal.
[2016-11-09] MEDS ORDERED: FENTANYL PATCH REMOVAL TD ONE (11:00)
== END 2016-11-06 18:00 | disposition hospice, home (50) | DRG 872 ==
LOC: ED 15:31 → EDHOLD 18:48 → CCU 19:30
PROVIDERS: ADMIT Internal Medicine; ATTEND Internal Medicine
DX: A41.9 Sepsis, unspecified organism (principal); E87.2 Acidosis; E87.3 Alkalosis; C23 Malignant neoplasm of gallbladder; C78.7 Secondary malignant neoplasm of liver and intrahepatic bile duct; R18.8 Other ascites; Z68.1 Body mass index [BMI] 19.9 or less, adult; R65.20 Severe sepsis without septic shock; E11.65 Type 2 diabetes mellitus with hyperglycemia; I10 Essential (primary) hypertension; K21.9 Gastro-esophageal reflux disease without esophagitis; K59.00 Constipation, unspecified; E83.42 Hypomagnesemia; E83.39 Other disorders of phosphorus metabolism; R63.0 Anorexia
CPT/HCPCS: 36415; 80048; 80053; 80069; 80202; 81003; 82010; 82803; 82948; 83605; 83735; 84145; 85007; 85025; 85027; 87040; 93005; 96361; 96365; 96367; 96375